=== PATIENT | female | born 1960 | race Caucasian/White ===

== ENCOUNTER 2021-05-31 07:00 | Emergency (ER) | payer SELFPAY ==
[2021-05-31 07:05] VITALS: BP 147/75; PULSE 109; RESP 17; TEMP 36.6; O2SAT 95; BMI 24.0
[2021-05-31 07:13] VITALS: BP 147/75; PULSE 111; RESP 20; TEMP 36.9; O2SAT 95; BMI 26.5
--- NOTE | 2021-05-31 07:23 | EX.ED.UPPERE ---
HPI History of Present Illness Chief Complaint: Upper Extremity Injury Narrative Narrative: 60-year-old female presenting with right shoulder pain. She says she also has some pain in her right trapezius. She denies any injury. She states it has been like this for 3 days and she woke up with the pain. She states she has been taking aspirin for the pain without relief. She states that her shoulder hurts so bad that she does not want to move her arm at all. She is using her left arm to lift her right arm. She is wearing a sling that she reportedly had put on by EMS. She was transported by EMS. [facility] Medical History History of shingles Home Medications hydrocodone-acetaminophen 1 tab PO Q6H PRN 3 Days #12 tab 05/31/21 [Rx Last Taken Unknown] prednisone 50 mg PO DAILY 5 Days #25 tab 05/31/21 [Rx Last Taken Unknown] Allergy/AdvReac Type Severity Reaction Status Date / Time No Known Allergies Allergy Verified 05/31/21 07:16 Social History Smoking Status: Current every day smoker tobacco type: cigarettes ROS ROS ED Constitutional Constitutional ED: Denies chills or fever(s) Eyes Eyes: Denies blurry vision or diplopia ENT ENT ED: Denies rhinorrhea or sore throat Cardiovascular Cardiovascular: Denies chest pain or palpitations Respiratory/Chest Respiratory/Chest: Denies cough, dyspnea or sputum Gastrointestinal Gastrointestinal: Denies abdominal pain, diarrhea, nausea or vomiting Genitourinary Genitourinary ED: Denies dysuria or hematuria Musculoskeletal Musculoskeletal: Reports neck pain and other Details: Right shoulder pain. Integumentary Denies rash Neurologic Neurologic: Denies headache(s) Psychiatric Psychiatric: Denies anxiety or depression EXAM Physical Exam Const Vital Signs: 05/31/21 07:05 05/31/21 07:13 Temperature 97.8 F 98.4 F Temperature Source Oral Temporal Pulse Rate 109 H 111 H Respiratory Rate 17 20 H Blood Pressure 147/75 H 147/75 H Blood Pressure Mean 99 99 Pulse Ox 95 95 Oxygen Delivery Method Room Air Room Air Positive well nourished General Appearance ED: NAD HEENT normocephalic Eyes PERRL and EOMs intact bilaterally Neck Neck Narrative: Right cervical paraspinal muscular tenderness approximately C6-C7. No midline deformity or step-off. Tenderness to palpation in the right trapezius. Resp normal respiratory effort and clear to auscultation bilaterally Cardio regular rate and regular rhythm Extremity Extremity Narrative: Tenderness palpation over the right shoulder girdle. Limited range of motion secondary to pain. Nontender over the rest of the humerus on the right. Right elbow nontender to palpation. Right forearm nontender to palpation. Right wrist and hand are nontender. Radial pulse 2+ in the right upper extremity. Sensation intact throughout. No rashes, ecchymosis, deformity. Neuro oriented x3 and CN's II-XII intact bilaterally Sensorium / Orientation: alert Psych mental status grossly normal Skin Lesions: no lesions Rashes: no rashes MDM MDM MDM Narrative Medical decision making narrative: Patient offered a shot of Toradol but states she is afraid of shots so she was given Ultram. Obtain imaging of the right shoulder and the cervical spine. My interpretation of the right shoulder x-ray shows no acute fracture or subluxation. On my interpretation of the cervical spine x-ray there does appear to be some degenerative changes at the levels of C5, C6, C7. This is likely causing her to have radicular pain. Patient will be given referral to orthopedic spine. She is given Prentice for pain for home. She is given return precautions. Impression: 1. Cervical radiculopathy Discharge Plan Triage Chief Complaint: Upper Extremity Injury ED Provider: Kermit Barker Dx/Rx/DC Orders Instructions: ED Radiculopathy, Cervical Prescriptions: New hydrocodone-acetaminophen 5-325 mg tablet 1 tab PO Q6H PRN (Reason: pain) 3 Days Qty: 12 RF: 0 prednisone 10 mg tablet 50 mg PO DAILY 5 Days Qty: 25 RF: 0 Primary Care Provider: Care Physician,No Primary Referrals: Louie Santos DO [STAFF PHYSICIAN] - As soon as possible Care Physician,No Primary [Primary Care Provider] - Disposition Disposition: Home, Self Care Discharge Date/Time: 05/31/21 10:43
--- NOTE | 2021-05-31 07:40 | RAD_ITS ---
EXAM: XR CERVICAL SPINE, 4 OR 5 VIEWS CLINICAL INDICATION: neck pain TECHNIQUE: Frontal, lateral and bilateral oblique views of the cervical spine. This report was created using [employer] report [employer] technology. COMPARISON: None. FINDINGS: VERTEBRAE: Mild degenerative anterolisthesis of C3 on C4. Preserved vertebral body height. No acute fracture. No spondylolisthesis. Preservation of the normal cervical lordosis. No significant facet arthropathy. DISC SPACES: Moderate stenosis of the bilateral C6-C7 intervertebral neural foramina due to osteophytes arising from the uncovertebral joints. Pronounced disc space height narrowing with anterior and posterior marginal spurs at C5-C6 and C6-C7 disc space levels. Normal remaining cervical disc space heights. SOFT TISSUES: Unremarkable. No prevertebral soft tissue widening. LUNG APICES: Clear. RAD/Cerv Spine 4 or 5 Views IMPRESSION: 1. No acute fracture of the cervical spine. 2. Moderate stenosis of the bilateral C6-C7 intervertebral neural foramina due to osteophytic spurs arising from the uncovertebral joints and pronounced C6-C7 degenerative disc space height narrowing. 3. Pronounced C5-C6 disc space height narrowing with anterior and posterior marginal spurs but no stenosis of the intervertebral neural foramina. 4. Mild degenerative anterolisthesis of C3 on C4. Electronically Signed: Jorge L Ferro MD at 8:56 EDT ,
--- NOTE | 2021-05-31 07:40 | RAD_ITS ---
STUDY: X-RAY - RIGHT SHOULDER REASON FOR EXAM: Right shoulder pain for 2 days, no specific injury. TECHNIQUE: 4 view(s) of the shoulder. COMPARISON: None. FINDINGS: Normal glenohumeral articulation. Normal acromioclavicular joint. Normal acromion. Normal humeral head and visualized proximal humerus. The soft tissue structures are unremarkable. There is scarring in the right pulmonary apex. RAD/Shoulder min 2 Views IMPRESSION: Unremarkable x-ray examination of the right shoulder. Electronically Signed: Oneil Montilla MD at 8:30 EDT ,
[2021-05-31] MEDS: traMADol 50 MG Tablet PO (09:48)
[2021-05-31] MEDS: predniSONE 20 MG Tablet 60 MG PO (09:48)
== END 2021-05-31 10:43 | disposition home or self-care (01) ==
PROVIDERS: Emergency Provider Student in an Organized Health Care Education/Training Program; Visit Provider Student in an Organized Health Care Education/Training Program
DX: M54.12 Radiculopathy, cervical region (principal); F17.210 Nicotine dependence, cigarettes, uncomplicated; M25.511 Pain in right shoulder
CPT/HCPCS: 72050; 73030; 99284

== ENCOUNTER 2024-04-29 09:33 | Emergency (ER) | payer OTHER, SELFPAY ==
[2024-04-29 09:35] VITALS: BP 158/73; PULSE 98; RESP 18; TEMP 37.1; O2SAT 93
--- NOTE | 2024-04-29 09:47 | EKG12_ITS ---
Test Reason : DYSRHYTHMIA Blood Pressure : */* mmHG Vent. Rate : 87 BPM Atrial Rate : 87 BPM P-R Int : 128 ms QRS Dur : 86 ms QT Int : 374 ms P-R-T Axes : 84 92 77 degrees QTcB Int : 450 ms Normal sinus rhythm Right atrial enlargement Rightward axis Pulmonary disease pattern Cannot rule out Septal infarct , age undetermined Abnormal ECG When compared with ECG of 29-Apr-2024 09:43, MANUAL COMPARISON REQUIRED DATA IS UNCONFIRMED Confirmed by Alex Mchugh ([id number]), food expeditor LE MENDOZA ([id number]) on 05/01/2024 7:34:19 AM Referred By: Confirmed By: lAex Mchugh
--- NOTE | 2024-04-29 09:48 | EDS_ITS ---
HPI History of Present Illness Chief Complaint: Chest Pain Informant: patient and friend Narrative Narrative: 63-year-old female states she woke up in the middle of the night with chest discomfort this morning 5 or 6 hours prior to arrival, has been aggressively g etting worse that she came to the ER. She states it feels like there is 2 different discomfort. She feels like there is pressure in her chest and then she feels like there is some type of pain just left of sternum. It does not radiate. She does not have pleuritic discomfort. She feels short of breath with this. She denies recent cough or feeling like she has an illness/infection. Her friend states she was clammy today, she denies any near- syncope or syncope, palpitations, nausea or vomiting or abdominal discomfort. No recent leg pain or swelling or recent travel/hospitalization. She states that she was in the ER a month or 2 ago somewhere else, was diagnosed with a UTI and had a CT scan, and she cannot give me any other details about that. She is a smoker, but she does not have any medical history because she does not have a doctor that she sees outside of emergency departments. [facility] Medical History History of shingles Home Medications ?Medication ?Instructions ?Recorded ?Last Taken ?Type NK 04/29/24 Unknown History Allergy/AdvReac Type Severity Reaction Status Date / Time No Known Allergies Allergy Verified 04/29/24 09:34 Social History Smoking Status: Current every day smoker tobacco type: cigarettes ROS ROS ED Constitutional Constitutional ED: Reports sweats; Denies chills or fever(s) Eyes Eyes: Denies change in vision or diplopia ENT ENT ED: Denies rhinorrhea or sore throat Cardiovascular Cardiovascular: Reports as per HPI and chest pain; Denies palpitations Respiratory/Chest Respiratory/Chest: Reports dyspnea; Denies cough Gastrointestinal Gastrointestinal: Denies abdominal pain, diarrhea, nausea or vomiting Genitourinary Genitourinary ED: Denies dysuria or hematuria Musculoskeletal Musculoskeletal: Denies back pain, extremity pain or neck pain Integumentary Denies abscess or rash Neurologic Neurologic: Denies headache(s), paresthesias or weakness Psychiatric Psychiatric: Reports anxiety; Denies suicidal thoughts EXAM Physical Exam Const Vital Signs: 04/29/24 09:35 04/29/24 09:52 04/29/24 09:57 Temperature 98.7 F Temperature Source Oral Pulse Rate 98 Respiratory Rate 18 Respiratory Effort Normal Non-Labored Respiratory Pattern Normal Blood Pressure 158/73 H Blood Pressure Mean 101 Pulse Ox 93 Oxygen Delivery Method Room Air Room Air 04/29/24 10:26 04/29/24 10:33 04/29/24 10:53 Temperature 98.9 F Temperature Source Oral Pulse Rate 89 89 83 Respiratory Rate 16 Respiratory Effort Respiratory Pattern Blood Pressure 131/88 H 144/88 H 144/86 H Blood Pressure Mean 106 Pulse Ox 98 Oxygen Delivery Method Room Air 04/29/24 12:00 Temperature Temperature Source Pulse Rate 89 Respiratory Rate 22 H Respiratory Effort Respiratory Pattern Blood Pressure 148/76 H Blood Pressure Mean 100 Pulse Ox 98 Oxygen Delivery Method Room Air Positive well nourished and well developed General Appearance ED: well developed and NAD HEENT Reports moist mucous membranes normocephalic and atraumatic Eyes PERRL and EOMs intact bilaterally Neck full ROM and supple Chest Wall inspection of chest normal and palpation of chest normal Resp normal respiratory effort and clear to auscultation bilaterally Resp Narrative: Very diminished throughout. Breath sounds are equal bilaterally. Cardio regular rate, regular rhythm and no murmurs Peripheral Pulses: pulses 2+ throughout GI non-tender and non-distended Auscultation: normoactive bowel sounds Palpation: soft Back/Spine no CVA tenderness General Back: other FROM Extremity normal to inspection General Extremety ED: Negative for edema, pulses abnormal or tenderness General Extremity: Negative for edema or pulses abnormal Neuro oriented x3, CN's II-XII intact bilaterally and no sensory deficits noted Sensorium / Orientation: awake and alert Motor Exam: strength 5/5 throughout Psych Mood & Affect: anxious Skin no rashes or lesions noted and no wounds Heart Score History: Highly Suspicious ECG: Nonspecific Repolarization Age: >45 - <65 years Risk Factors: 1 or 2 Risk Factors Troponin: </= Normal Limit Score: 5 MDM MDM MDM Narrative Medical decision making narrative: Patient has an EKG that shows no STEMI, there are some mild nonspecific ST abnormalities that are mostly inferior. The history is concerning, and the fact that she has a long history of heavy smoking and does not see a doctor and has very diminished lungs with a right axis on her EKG is concerning for possible undiagnosed COPD, but her symptoms sound more cardiac than pulmonary at this point. Two-view chest x-ray my interpretation shows COPD-like hyperexpansion, without any acute infiltrate, pneumothorax, or other pathology such as mediastinal widening. Her initial troponin is normal at 14. In the meantime the aspirin and nitroglycerin helped and her chest pressure is resolved. I believe this is a high risk situation and admission to the hospital is warranted. The patient did not want to stay in hospital, we had several conversations regarding why I recommended that she stay. She at least 8 for the second troponin, which went up by 4 into the abnormal range. As I discussed with her this is nonspecific but adds to the concern and her risk. We discussed why I do not know more specifics about the status of her heart and the need for admission and further testing and the fact that she is at risk for going home and having a myocardial infarction which could lead to cardiopulmonary arrest and/or , and she will have a hard time following up within a short period of time since she is not already established with a physician. Her sister was present throughout these conversations and is in agreement with me and tried to convince the patient to stay and we would sort the finances/insurance out later. I advised him that I would come back to talk more with them because they were talking amongst themselves. I advised the patient that if she left it with certainly need to be AGAINST MEDICAL ADVICE, and I do believe that she has the capacity to make this decision. When I came back they had already left. Lab Data Attestation: I reviewed the patient's lab results. Labs: Laboratory Results - last 24 hr 04/29/24 04/29/24 09:56 12:20 WBC 10.8 RBC 4.34 Hgb 13.5 Hct 40.2 MCV 92.6 MCH 31.1 MCHC 33.6 RDW Std Deviation 47.2 H RDW Coeff of Lakhwinder 13.8 Plt Count 190 MPV 11.1 Immature Gran % (Auto) 0.300 Neut % (Auto) 68.4 Lymph % (Auto) 18.7 L Hughes % (Auto) 9.7 Eos % (Auto) 2.2 Baso % (Auto) 0.7 Absolute Neuts (auto) 7.4 Absolute Lymphs (auto) 2.01 Nucleated RBC % 0 Sodium 137 Potassium 4.8 Chloride Direct 102 Carbon Dioxide 23.0 Anion Gap 12 BUN 19 Creatinine 0.62 L Estim Creat Clear Calc 66.12 Est GFR (MDRD) Non-Af 100 BUN/Creatinine Ratio 30.5 H Glucose 186 H Calcium 9.0 Troponin T High Sens 14 Troponin T Hi Sens 2 Hr 17 H Troponin T Hi Sens 2Hr Delta 4 Radiography Diagnostic Testing: Clinical Impression(s) from Imaging Studies Chest X-Ray 04/29/24 10:10 IMPRESSION: Hyperinflation and emphysematous changes with decreased bronchovascular markings in both upper lobes and right lung base suggestive of emphysematous changes with bullous formation. No definite pneumothorax is seen. Reading Location: [id number] Rhythm Strip Rhythm Strip: Sinus Rhythm Rate: 99 Ectopy: None EKG Initial EKG: Attestation: I personally reviewed and interpreted this EKG as follows: Interpretation: Sinus Rhythm, No Acute Injury Pattern and Non-Specific ST Changes (Some possible inferior nonspecific ST-T wave abnormalities; poor R wave progression; borderline right axis; otherwise normal intervals) Prior EKG tracings: not available for review Prior: No Prior Discharge Plan Triage Chief Complaint: Chest Pain ED Provider: Tariq Carson Dx/Rx/DC Orders Clinical Impression: Chest pain, unspecified Prescriptions: No Action NK Primary Care Provider: Care Physician,No Primary Referrals: Care Physician,No Primary [Primary Care Provider] - Print Language: Slovak Disposition Disposition: Against Medical Advice Discharge Date/Time: 04/29/24 14:30
[2024-04-29 09:52] VITALS: BMI 18.1
[2024-04-29 10:10] LABS: Absolute Lymphocyte Count 2.01 X10^3/uL (0.83-4.51); Absolute Neutrophil Count 7.4 X10^3/uL (2.0-7.7); Basophil# 0.07 X10^3/uL; Basophil% 0.7 % (0-1); Eosinophil# 0.24 X10^3/uL; Eosinophils% 2.2 % (0-5); Hematocrit 40.2 % (37-47); Hemoglobin 13.5 g/dL (12.0-15.0); Lymphocyte # 2.01 X10^3/ul (0.83-4.51); Lymphocyte % 18.7 % (19-41); Mean Corp Hgb Conc 33.6 g/dL (32-36); Mean Corpuscular Hgb 31.1 pg (27.0-32.0); Mean Corpuscular Volume 92.6 fL (81-99); Mean Platelet Vol. 11.1 fl (6.2-12.0); Monocyte# 1.04 X10^3/uL; Monocyte% 9.7 % (0-10); NRBC Flagged by Analyzer 0 % (0-5); Neutrophil # 7.37 X10^3/uL (2.7-7.7); Neutrophil % 68.4 % (47-70); Platelet Count 190 K/mm3 (150-450); RBC Distribution Width CV 13.8 % (11.6-14.6); RBC Distribution Width SD 47.2 fl (35.1-43.9); Red Blood Count 4.34 M/mm3 (4.2-5.4); White Blood Count 10.8 K/mm3 (4.4-11.0)
--- NOTE | 2024-04-29 10:10 | RAD_ITS ---
PROCEDURE: CHEST PA AND LATERAL REASON FOR EXAM: Chest pain and shortness of breath. TECHNIQUE: Frontal and lateral views of the chest. COMPARISON: None. FINDINGS: EKG electrodes are seen. Atherosclerotic calcification of the aortic arch. Hyperinflation. Decreased bronchovascular markings in the upper lobes suggestive of emphysema with bullous formation. Mild residual lung tissue in the left lower lobe. The bones are unremarkable. RAD/Chest PA and Lateral IMPRESSION: Hyperinflation and emphysematous changes with decreased bronchovascular marking s in both upper lobes and right lung base suggestive of emphysematous changes with bullous formation. No definite pneumo thorax is seen. Reading Location: [facility]
[2024-04-29 10:26] VITALS: BP 131/88; PULSE 89
[2024-04-29] MEDS: Aspirin 81 MG TAB.CHEW 324 MG PO (10:26)
[2024-04-29] MEDS: Nitroglycerin SL (ED/IMG/CATH) 0.4 MG TABLET SL ×2 (10:26→10:53)
[2024-04-29 10:33] VITALS: BP 144/88; PULSE 89; RESP 16; TEMP 37.2; O2SAT 98
[2024-04-29 10:53] VITALS: BP 144/86; PULSE 83
[2024-04-29 10:53] LABS: Anion Gap 12 (5-15); BUN 19 mg/dL (4-19); BUN/Creat Ratio 30.5 RATIO (10-20); Chloride 102 mmol/L (96-108); Creatinine, Serum 0.62 mg/dL (0.70-1.20); EST Glomerular Filtration Rate 100 (>60); Estimated Creatinine Clearance 66.12 ml/min (50-250); Glucose 186 mg/dL (70-99); Potassium 4.8 mmol/L (3.3-5.1); Sodium Level 137 mmol/L (133-145); Troponin T High Sensitivity 14 ng/L (<=14)
[2024-04-29 12:00] VITALS: BP 148/76; PULSE 89; RESP 22; O2SAT 98
--- NOTE | 2024-04-29 13:00 | CM.ED ---
Social work Reason for referral: Medicaid application Referral source: Emely, registration Emely from [facility] Registration asked for SW to speak with patient due to patient's doctor recommending patient be admitted, but patient's desire to not be admitted for various reasons. Emely expressed patient's insurance was not verifying which was causing additional stress for patient. Emely stated attempting to explain to patient that patient could apply for Medicaid and Medicaid would apply to a past visit, but patient was still reportedly stating desire to leave. This SW entered patient's room, introducing self and role at [facility]. Patient was observed crying in a position on the bed, stating not being able to stay the night and not being able to make the right decision. Patient's sister, Nessa Schmid, was bedside and talked with this SW about some of the stress patient was under, including losing patient's and 2 children recently (one child to overdose) and having family members shun patient. Nessa stated patient had been living with patient's brother in [place], but patient was staying currently with Nessa in [place]. Nessa stated wanting to take patient home with Nessa and make sure patient did the recommended testing outpatient rather than patient being admitted. SW attempted to explore patient stressors, including patient's lack of insurance. SW explained that SW could have patient apply for Medicaid while remaining in the ED or during admission; patient refused. SW advised Nessa and patient of patient's doctor's recommendation to stay and be admitted, specifically stating that patient's reported stress level was contributing to patient's need for a stress test and admission. Patient stated not being willing to stay despite knowing this was a bad decision and requested to leave. SW left room to update Dr. Carson and Gordon YUNG. SW reentered patient's room after gathering information on patient's options for applying for Medicaid. Upon reentry into patient's room, patient was observed highly escalated and laying in the position crying. Patient was observed talking, seemingly to another person in the room. Nessa stated patient had never done that before to Nessa's knowledge, though Nessa reported not seeing patient recently. Nessa was open to this SW speaking privately with patient; patient was open to this once known that SW was simply trying to support patient rather than trick patient into staying. Throughout conversation, patient was observed being able to take deep breaths and discuss the situation in a more calm way. Patient identified knowing the right decision to make, but being unable to fight self to make the right decision. Patient stated never being able to make good decisions in the past, so why start now? Patient confirmed patient's better half Abdi as passing away in August 2016. Patient stated being homeless then for 3 years prior to moving in with patient's brother in [place]. Patient stated patient's daughter, Joselyn, in 2014 and patient's son, Dominic, in 2018. Patient stated these being difficult deaths for patient to endure and patient often talking to Abdi for comfort, but patient denied hearing Abdi respond. Patient stated having 2 other daughters and 3 grandchildren. Patient stated coping with stress by making jewelry, reading, and playing with patient's Ehsan roth. Patient denied having any mental health diagnoses or taking mental health medication. Patient stated doing some counseling previously at [facility] in [place], though states this was years ago. Patient stated having one suicide attempt via cutting self when patient's children were younger, though patient denies any current suicidal thoughts. Patient endorses wishing patient wasn't left behind when Abdi and patient's children passed, though patient stated often that patient does not want to kill self to get to [facility] sooner and patient has no desire to hurt self. Patient accepted resources of local counseling agencies and stated willingness for SW to inform Nessa of patient receiving counseling resources. Patient denied further needs at this time, but patient remained adamant that patient was intending to leave [facility]. BRANDEE updated Dr. Carson and Gordon RN. Hilaria Kitchen, CLOTH DESIGNER, SECURITIES UNDERWRITER
[2024-04-29 13:07] LABS: TROPONIN VARIANCE 2 HR 4; Troponin T High Sens 2 HR 17 ng/L (<=14)
[2024-04-29 14:00] VITALS: BP 142/78; PULSE 64; RESP 18; O2SAT 98
== END 2024-04-29 14:30 | disposition left against medical advice (07) ==
PROVIDERS: Emergency Provider Emergency Medicine; Visit Provider Emergency Medicine
DX: R07.9 Chest pain, unspecified (principal); F17.210 Nicotine dependence, cigarettes, uncomplicated
CPT/HCPCS: 71046; 80048; 84484; 85025; 93005; 99284; A4216

== ENCOUNTER 2024-04-29 21:58 | Observation (INO) | payer OTHER, SELFPAY ==
[2024-04-29] VITALS (12 sets, daily range): BP systolic 98–139; BP diastolic 50–80; PULSE 79–91; RESP 13–21; TEMP 36.4; O2SAT 89–98; BMI 17.5
--- NOTE | 2024-04-29 09:43 | EKG12_ITS ---
Test Reason : CP Blood Pressure : */* mmHG Vent. Rate : 99 BPM Atrial Rate : 99 BPM P-R Int : 126 ms QRS Dur : 86 ms QT Int : 360 ms P-R-T Axes : 79 91 64 degrees QTcB Int : 462 ms Normal sinus rhythm Rightward axis Septal infarct , age undetermined Abnormal ECG No previous ECGs available Confirmed by Alex Mchugh ([id number]), pictures editor LE MENDOZA ([id number]) on 05/01/2024 7:36:53 AM Referred By: Confirmed By: Alex Mchugh
--- NOTE | 2024-04-29 22:31 | EKG12_ITS ---
Test Reason : CP ADMIT Blood Pressure : */* mmHG Vent. Rate : 85 BPM Atrial Rate : 85 BPM P-R Int : 134 ms QRS Dur : 100 ms QT Int : 372 ms P-R-T Axes : 86 91 78 degrees QTcB Int : 442 ms Normal sinus rhythm Rightward axis Septal infarct , age undetermined Abnormal ECG When compared with ECG of 29-Apr-2024 22:10, MANUAL COMPARISON REQUIRED DATA IS UNCONFIRMED Confirmed by Alex Mchugh ([id number]), editor producer DESEAN PEACOCK ([id number]) on 04/30/2024 10:45:54 AM Referred By: DR ANDRADE Confirmed By: Alex Mchugh
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
[2024-04-29] MEDS: Ipratropium/Albuterol Sulfate 3 ML AMPUL.NEB INHALATION (22:44)
[2024-04-29] MEDS: Lorazepam 2 MG/ML WCH Syringe 0.5 MG IV (22:50)
[2024-04-29] MEDS: 0.9% Normal Saline (1000mL) 1,000 ML 999 ML IV (22:50)
[2024-04-29] MEDS: Nitroglycerin SL (ED/IMG/CATH) 0.4 MG TABLET SL ×2 (22:51→23:14)
[2024-04-29 22:59] LABS: D-Dimer Quantitative (DVT/PE) 0.28 FEU/ug/m (0.27-0.49)
[2024-04-29 23:18] LABS: Magnesium 2.2 mg/dL (1.5-2.2)
[2024-04-29 23:22] LABS: Troponin T High Sensitivity 14 ng/L (<=14)
--- NOTE | 2024-04-29 23:52 | HP.PCM_ITS ---
HPI - General General Date of Admission: 04/29/24 Date of Service: 04/29/24 Chief Complaint: Chest pain HPI Narrative NAOMI SÁNCHEZ, is a 63 F who presents to the emergency room with chief complaint of chest pain. She was seen and examined earlier in the day and left AMA only to return later this evening. Patient states at 4:00 this morning she had substernal chest pain that did not radiate it was significant enough to make her feel short of breath. Patient has a significant past medical history of long-term smoking and does not routinely seek medical care. Patient states she was anxious and left the emergency room to help care for family member but then came back for further evaluation. Initial troponin x 2 are negative however due to risk factors and continued chest pain patient will be admitted for cardiac rule out. Patient denies any fevers chills and/or nausea or vomiting or diarrhea. [facility] Medical History History of shingles Home Medications ?Medication ?Instructions ?Recorded ?Last Taken ?Type NK 04/29/24 Unknown History Allergy/AdvReac Type Severity Reaction Status Date / Time No Known Allergies Allergy Verified 04/29/24 21:59 Social History Smoking Status: Current every day smoker tobacco type: cigarettes ROS Constitutional Constitutional: Denies chills or fever(s) Eyes Eyes: Denies blurry vision ENT HEENT: Denies abnormal hearing Cardiovascular Cardiovascular: Reports chest pain; Denies syncope Respiratory/Chest Respiratory/Chest: Denies cough Gastrointestinal Gastrointestinal: Denies abdominal pain Genitourinary Genitourinary: Denies dysuria Musculoskeletal Musculoskeletal: Denies back pain Integumentary Integumentary: Denies dry skin Neurologic Neurologic: Denies abnormal speech Psychiatric Psychiatric: Reports anxiety Vital Signs Vital Signs Vital Signs: 04/29/24 21:59 04/29/24 22:35 04/29/24 22:41 Temperature 97.5 F L Temperature Source Oral Pulse Rate 88 87 Respiratory Rate 18 18 Respiratory Pattern Blood Pressure 139/75 H Blood Pressure Mean 96 Pulse Ox 94 Oxygen Delivery Method Room Air Room Air 04/29/24 22:43 04/29/24 22:44 04/29/24 22:45 Temperature Temperature Source Pulse Rate 81 84 Respiratory Rate 20 H 21 H Respiratory Pattern Normal Normal Blood Pressure Blood Pressure Mean Pulse Ox Oxygen Delivery Method 04/29/24 22:51 04/29/24 22:52 04/29/24 23:00 Temperature Temperature Source Pulse Rate 81 80 88 Respiratory Rate 19 H 18 Respiratory Pattern Blood Pressure 107/80 107/80 117/64 Blood Pressure Mean 90 75 Pulse Ox 98 93 Oxygen Delivery Method Room Air Room Air 04/29/24 23:03 04/29/24 23:14 Temperature Temperature Source Pulse Rate 81 79 Respiratory Rate 18 Respiratory Pattern Blood Pressure 117/64 118/66 Blood Pressure Mean 81 Pulse Ox 94 Oxygen Delivery Method Room Air Weight Weight: 95 lb 14.4 oz Body Mass Index (BMI) 17.5 Physical Exam Const oriented x3 General Appearance: cooperative and well developed Eyes PERRL and EOMs intact bilaterally Neck no lymphadenopathy Lymph Lymphatic: no lymphadenopathy noted Resp normal respiratory effort, normal air movement and clear to auscultation bilaterally Cardio regular rate, regular rhythm, S1 normal heart sound, S2 normal heart sound and no murmurs GI normal to inspection, nondistended, normoactive bowel sounds Extremity normal capillary refill Skin General Skin Exam: no breakdown Neuro no focal motor deficits and no sensory deficits noted Psych thought process normal Mood & Affect: anxious Results Lab / Micro Data Labs: Laboratory Results - last 24 hr 04/29/24 22:44: D-Dimer Quant (PE/DVT) 0.28, Magnesium 2.2, Troponin T High Sens 14, TSH 5.260 H Rhythm Strip Rhythm Strip: Sinus Rhythm Rate: 87 Ectopy: None Assessment & Plan Assessment/Plan (1) Chest pain, unspecified: PLAN: Plan 1 chest pain rule out GA?admit patient to progressive care unit, repeat cardiac enzymes, order nuclear exercise stress test in the a.m. will add orders for as needed nitroglycerin for chest pain as well as oxygen as needed. I do not feel morphine is warranted at this time as her pain is 1 out of 10 on a scale 1-10. 2. Smoking cessation encouraged 3. DVT prophylaxis?low molecular weight heparin Charges/Coding Visit Charges OBSV E&M: 20903 Observ/hosp same date L2
[2024-04-30] VITALS (12 sets, daily range): BP systolic 98–129; BP diastolic 46–72; PULSE 76–92; RESP 12–18; TEMP 35.7–36.8; O2SAT 86–100; BMI 17.3
[2024-04-30 01:14] LABS: TROPONIN VARIANCE 2 HR 2; Troponin T High Sens 2 HR 16 ng/L (<=14)
--- NOTE | 2024-04-30 02:56 | NURSING ---
Pts friend Harvinder sent keys to pt on PCU once admitted. Her car is parked at hospital in middle of parking lot A.
[2024-04-30 03:45] LABS: Absolute Lymphocyte Count 1.93 X10^3/uL (0.83-4.51); Absolute Neutrophil Count 4.7 X10^3/uL (2.0-7.7); Basophil# 0.04 X10^3/uL; Basophil% 0.5 % (0-1); Eosinophil# 0.22 X10^3/uL; Eosinophils% 2.9 % (0-5); Hematocrit 37.9 % (37-47); Lymphocyte # 1.93 X10^3/ul (0.83-4.51); Lymphocyte % 25.2 % (19-41); Mean Corp Hgb Conc 34.3 g/dL (32-36); Mean Corpuscular Hgb 32.2 pg (27.0-32.0); Mean Corpuscular Volume 93.8 fL (81-99); Mean Platelet Vol. 10.9 fl (6.2-12.0); Monocyte# 0.79 X10^3/uL; Monocyte% 10.3 % (0-10); NRBC Flagged by Analyzer 0 % (0-5); Neutrophil # 4.65 X10^3/uL (2.7-7.7); Neutrophil % 60.8 % (47-70); Platelet Count 166 K/mm3 (150-450); RBC Distribution Width CV 13.8 % (11.6-14.6); RBC Distribution Width SD 47.4 fl (35.1-43.9); Red Blood Count 4.04 M/mm3 (4.2-5.4); White Blood Count 7.7 K/mm3 (4.4-11.0)
[2024-04-30 04:09] LABS: TROPONIN VARIANCE 4 HR 3; Troponin T High Sens 4 HR 17 ng/L (<=14)
[2024-04-30 04:11] LABS: Anion Gap 9 (5-15); BUN 20 mg/dL (4-19); BUN/Creat Ratio 37.6 RATIO (10-20); Carbon Dioxide 23.9 mmol/L (21.0-32.0); Chloride 105 mmol/L (98-108); Creatinine, Serum 0.52 mg/dL (0.70-1.20); EST Glomerular Filtration Rate 104 (>60); Estimated Creatinine Clearance 74.99 ml/min (50-250); Glucose 97 mg/dL (70-99); Potassium 4.1 mmol/L (3.3-5.1); Sodium Level 138 mmol/L (133-145)
[2024-04-30] MEDS: 0.9% Saline Lock 10 ML Syringe IV (06:07)
--- NOTE | 2024-04-30 10:05 | STRESSREP_ITS ---
Stress Test Report Date: 04/30/2024 Procedure: Pharmacologic stress nuclear imaging study Indications: Chest pain Consent: Per the patient Procedure: The patient underwent pharmacologic (Regadenoson 0.4mg ) evaluation with a peak heart rate of 96 beats per minute (61%predicted maximal heart rate) and a peak blood pressure of 122/68 mmHg. The baseline ECG demonstrated sinus rhythm. The peak pharmacologic ECG demonstrated no ischemic changes. There were no cardiac dysrhythmias pretest, during pharmacologic infusion, or recovery. There was no complaint of chest discomfort during pharmacologic infusion or recovery. The patient was injected with 12.0 millicuries of technetium 99m Cardiolite and subsequently rest SPECT Cardiolite nuclear imaging was obtained in the horizontal long, vertical long, and short axis views. The patient underwent pharmacologic (Regadenoson) evaluation. The patient was injected with 34.9 millicuries of technetium 99m Cardiolite and subsequently stress SPECT Cardiolite nuclear imaging was obtained in the horizontal long, vertical long, and short axis views. A gated Cardiolite study at peak stress was obtained. The examination was stopped secondary to completion of protocol. Rest and stress SPECT Cardiolite nuclear imaging status post realignment, normalization, and attenuation correction demonstrate no fixed or reversible perfusion defects. There is end systolic thickening and brightening. The gated Cardiolite study demonstrates myocardial thickening and inward wall motion. The reported LVEF is 74%. Impression: 1. Pharmacologic (Regadenoson) evaluation 2. Peak pharmacologic ECG with no ischemic changes. 3. There were no cardiac dysrhythmias pretest, during pharmacologic infusion, or recovery. 5. Rest and stress SPECT Cardiolite nuclear imaging demonstrate relative uniform tracer uptake and myocardial perfusion appearing within normal limits. 6. The gated Cardiolite study reports an LVEF of 74%. This note was generated with O-RIDation software. It may contain incorrect words, spelling, and punctuation that were not noted in checking the note before signing.
--- NOTE | 2024-04-30 15:49 | DS.PCM_ITS ---
Providers Date of Admission: 04/29/24 Date of Discharge: 04/30/24 Primary Care Physician: No Primary Care Phys Reason For Visit: CHEST PAIN Diagnosis Discharge Diagnosis (1) Chest pain, unspecified: Status: Acute Code(s): R07.9 - Chest pain, unspecified Medications at Discharge Home Medications NK 04/29/24 Hospital Course Operations None Procedures Stress test Summary of Care Provided Minutes Spent on Discharge: 45 Hospital Course: Patient is a 63-year-old female with no significant past medical history who was admitted through the ED on 04/30/2024 with a complaint of chest pain. She had been seen in the ED earlier on the day of admission but left AMA and subsequently came back. She had the chest pain was substernal and started in the early hours of the day of admission. She had a history of long-term smoking. She denied any lightheadedness or dizziness, nausea vomiting or any other symptoms. Review of symptoms otherwise negative. Troponins x 3 were negative and EKG showed no acute ST changes. She was admitted to be managed for chest pain to rule out ACS. She had a stress test done on 04/30/2024 which showed no evidence of ischemia. Of note patient's TSH checked on admission was also elevated at 5.2. Free T3 and T4 were therefore checked which were pending at time of discharge. Patient seen and examined prior to discharge. She had no other complaints and felt well. Chest pain had not recurred overnight. Review of systems otherwise negative. Labs and vitals reviewed. Home medication reviewed and reconciled. Physical Exam Const alert, oriented x3 and no apparent distress General Appearance: cooperative and comfortable Orientation / Consciousness: awake HEENT normocephalic, head/scalp atraumatic, hearing grossly normal bilaterally and moist oral mucous membranes Mouth: oral and palatal mucosa normal Eyes PERRL, EOMs intact bilaterally and conjunctivae normal Neck no lymphadenopathy, supple and no JVD Resp normal respiratory effort, no retractions, no use of accessory muscles and clear to auscultation bilaterally Cardio regular rate, regular rhythm, S1 normal heart sound, S2 normal heart sound and no murmurs GI normal to inspection, nondistended, normoactive bowel sounds, soft to palpation, non-tender and non-distended Extremity normal to inspection, full ROM and no clubbing, cyanosis or edema Skin no rashes or lesions noted Neuro oriented x3, CN's II-XII intact bilaterally, moves all extremities and no focal motor deficits Sensorium / Orientation: awake and alert Motor Exam: strength 5/5 throughout Psych affect normal Weight / BMI Weight Weight: 94 lb 9.253 oz Body Mass Index (BMI) 17.3 ABG / Lab / Microbiology Data 04/30/24 03:24 04/30/24 03:24 Laboratory: Laboratory Results - last 24 hr 04/29/24 22:44: D-Dimer Quant (PE/DVT) 0.28, Magnesium 2.2, Troponin T High Sens 14, TSH 5.260 H 04/30/24 00:47: Troponin T Hi Sens 2 Hr 16 H, Troponin T Hi Sens 2Hr Delta 2 04/30/24 03:24: WBC 7.7, RBC 4.04 L, Hgb 13.0, Hct 37.9, MCV 93.8, MCH 32.2 H, MCHC 34.3, RDW Std Deviation 47.4 H, RDW Coeff of Lakhwinder 13.8, Plt Count 166, MPV 10.9, Immature Gran % (Auto) 0.300, Neut % (Auto) 60.8, Lymph % (Auto) 25.2, M ulises % (Auto) 10.3 H, Eos % (Auto) 2.9, Baso % (Auto) 0.5, Absolute Neuts (auto) 4.7, Absolute Lymphs (auto) 1.93, Nucleated RBC % 0, Sodium 138, Potassium 4.1, Chloride 105, Carbon Dioxide 23.9, Anion Gap 9, BUN 20 H, Creatinine 0.52 L, Estim Creat Clear Calc 74.99, Est GFR (MDRD) Non-Af 104, BUN/Creatinine Ratio 37.6 H, Glucose 97, Calcium 9.0, Troponin T Hi Sens 4Hr 17 H, Troponin T Hi Sens 4Hr Delta 3 D/C Instructions Discharge Diet: Low fat / Low cholesterol Discharge Activity: Return to Normal Activity Weight Bearing Status: Weight bearing as tolerated Call your doctor if you observe: Fever of 101 or Higher, Shortness of breath, Dizziness, Swelling in the ankles and Chest pain DC O2, CPAP, BIPAP Needs Home O2 Discharge instructions: No DC home with Oxygen: No Meaningful Use Info Meaningful Use Meaningful Use Diagnoses (Choose all that apply): None applicable Ischemic Stroke Statin Dosing Therapy Reference: STATIN DOSE THERAPY REFERENCE: * Patients > 75 years receive moderate or high dose statin therapy. * Patients 75 years or YOUNGER should receive HIGH intensity statin dose unless contraindicated. You will be required to document reason for non-treatment if statin daily dose does not meet guidelines. HIGH DOSE STATIN THERAPY DAILY Atorvastatin > than or = to 40 mg Rosuvastatin > than or = to 20 mg Amlodipine + Atorvastatin > than or = to 2.5/40 mg Ezetimibe + Simvastatin 10/80 mg Simvastatin 80mg Discharge Plan Admission Admit Date/Time: 04/29/24 23:57 Primary Reason for Your Visit: chest pain, hypothyroidism Attending Provider: Yamilet Matthews Primary Care Provider: Care Physician,No Primary Consulting Providers: Tor Law Instructions Patient Instructions: ED Chest Pain, Noncardiac, ED Hypothyroidism Discharge Orders/Prescriptions Prescriptions: No Action NK Referrals / Follow Up: Erika Hudson MD [Med Staff - Active Staff] - Within 1 Month (see to establish PCP care.) Care Physician,No Primary [Primary Care Provider] - Disposition Disposition (needs filled in before D/C Order can be placed): Home, Self Care Charges/Coding Visit Charges Inpatient E&M: 42662 Disch Hosp >30min
--- NOTE | 2024-04-30 17:22 | DCINST_ITS ---
Discharge Instructions Diet Discharge Diet: Low fat / Low cholesterol DC O2, CPAP, BIPAP needs Home O2 Discharge instructions: No Dressing / Incision Discharge Activity: Return to Normal Activity Weight Bearing Status: Weight bearing as tolerated Dressing / Incision Call your doctor if you observe: Fever of 101 or Higher, Shortness of breath, Dizziness, Swelling in the ankles and Chest pain Follow Up Care Test Results: Test results from this visit will be discussed in further detail at your follow- up appointment, if applicable. Discharge Plan Admission Admit Date/Time: 04/29/24 23:57 Primary Reason for Your Visit: chest pain, hypothyroidism Attending Provider: Yamilet Matthews Primary Care Provider: Care Physician,No Primary Consulting Providers: Tor Law Instructions Patient Instructions: ED Chest Pain, Noncardiac, ED Hypothyroidism Discharge Orders/Prescriptions Prescriptions: New levothyroxine 25 mcg capsule 25 mcg PO DAILY Qty: 30 0RF Referrals / Follow Up: Erika Hudson MD [Med Staff - Active Staff] - Within 1 Month (see to establish PCP care.) Care Physician,No Primary [Primary Care Provider] - Disposition Disposition (needs filled in before D/C Order can be placed): Home, Self Care
--- NOTE | 2024-04-30 19:56 | PN_ITS ---
Subjective Subjective Patient seen and examined. She had no active complaints. She was admitted ith a complaint of chest pain. Chest pain hasnt recurred since admission. She had a stress test done today which showed no evidence of ischemia. Plan was to discharge her home. However, she subsequently became hypoxic and required 2L of oxygen with ambulation. Discharge therefore cancelled as patient did not require oxygen on admission and so it was not clear why she was now on oxygen. Review of systems is otherwise negative. Objective Data Objective Data Vital Signs: Vital Signs Temp Pulse Resp BP Pulse Ox O2 Del Method O2 Flow Rate 98.3 F 89 18 105/46 L 92 Room Air 1 04/30/24 15:42 04/30/24 15:42 04/30/24 15:42 04/30/24 15:42 04/30/24 15:42 04/30/24 15:42 04/30/24 13:20 Oxygen Flow Rate (L/min) 1 Oxygen Delivery Method Room Air Weight: 94 lb 9.253 oz Body Mass Index (BMI) 17.3 Intake & Output: Intake and Output for Last 24 Hours 04/28/24 04/29/24 04/30/24 23:59 23:59 23:59 Intake Total 1000 / 1000 Balance 1000 / 1000 Lab / Micro Data 04/30/24 03:24 04/30/24 03:24 Labs: Laboratory Results - last 24 hr 04/29/24 22:44: D-Dimer Quant (PE/DVT) 0.28, Magnesium 2.2, Troponin T High Sens 14, TSH 5.260 H 04/30/24 00:47: Troponin T Hi Sens 2 Hr 16 H, Troponin T Hi Sens 2Hr Delta 2 04/30/24 03:24: WBC 7.7, RBC 4.04 L, Hgb 13.0, Hct 37.9, MCV 93.8, MCH 32.2 H, MCHC 34.3, RDW Std Deviation 47.4 H, RDW Coeff of Lakhwinder 13.8, Plt Count 166, MPV 10.9, Immature Gran % (Auto) 0.300, Neut % (Auto) 60.8, Lymph % (Auto) 25.2, M ulises % (Auto) 10.3 H, Eos % (Auto) 2.9, Baso % (Auto) 0.5, Absolute Neuts (auto) 4.7, Absolute Lymphs (auto) 1.93, Nucleated RBC % 0, Sodium 138, Potassium 4.1, Chloride 105, Carbon Dioxide 23.9, Anion Gap 9, BUN 20 H, Creatinine 0.52 L, Estim Creat Clear Calc 74.99, Est GFR (MDRD) Non-Af 104, BUN/Creatinine Ratio 37.6 H, Glucose 97, Calcium 9.0, Troponin T Hi Sens 4Hr 17 H, Troponin T Hi Sens 4Hr Delta 3, Free T4 1.30 Rhythm Strip Rhythm Strip: Sinus Rhythm Rate: 87 Ectopy: None Physical Exam Const alert, oriented x3, no apparent distress and well nourished General Appearance: cooperative and well developed HEENT normocephalic, head/scalp atraumatic, moist oral mucous membranes and oropharynx normal Eyes PERRL and EOMs intact bilaterally Neck no lymphadenopathy and supple Lymph Lymphatic: no lymphadenopathy noted and no lymphedema noted Resp Resp Narrative: mildly diminished breath sounds bibasally, no wheezes or crackles. On 2L of oxygen by nasal canula Cardio regular rate, regular rhythm, S1 normal heart sound, S2 normal heart sound and no murmurs GI normal to inspection, nondistended, normoactive bowel sounds, soft to palpation and non-tender Extremity normal capillary refill, no clubbing, cyanosis or edema and no calf tenderness General Extremity: no tenderness to palpation of joints or extremities Skin General Skin Exam: no breakdown Neuro CN's II-XII intact bilaterally, no focal motor deficits and no sensory deficits noted Motor Exam: strength 5/5 throughout Psych thought process normal and cooperative Assessment & Plan Assessment/Plan (1) Chest pain, unspecified: PLAN: Plan #Chest pain * chest pain did not recur during admission. * troponins are negative * EKG showed no acute ST changes. * stress test done today is negative * Stable. SL nitroglycerin prn * #Hypoxia * patient required 2L of oxygen. * unclear why she is requiring oxygen as she was not on oxygen on admission. I suspect she does have underlying COPD based on CXR findings on admission. * CXR showed hyperinflation and emphysematous changes with decreased bronchovascular markings in both upper lobes and right lung base suggestive of emphysematous changes with bullous formation and no definite pneumothorax. * I suspect she has underlying COPD also * give a dose of IV lasix 40mg x 1 this evening * check BNP. Get 2D echo tomorrow * titrate oxygen to maintain sats >90% * breathing treatment with bronchodilators. * #Subclinical hypothyroidism * TSH was elevated at 5.2, but free T4 was WNL. * will therefore hold off on starting synthroid * to follow up with PCP for repeat thyroid function tests on discharge. * DVT prophylaxis: lovenox Charges/Coding Visit Charges Inpatient E&M: 45605 Subs Hosp L2
[2024-04-30] MEDS: guaiFENesin 1,200 MG Tablet 1200 MG PO (20:30)
[2024-05-01 02:13] VITALS: BP 108/57; PULSE 86; RESP 20; TEMP 36.6; O2SAT 93
--- NOTE | 2024-05-01 07:44 | ECHOD_ITS ---
Reason For Study Reason For Study: DYSPNEA/SOB Procedure This was a 2D Doppler, Color Flow transthoracic echocardiogram. The study was technically difficult. Exam performed portable in patient room. Left Ventricle Normal size and thickness. The left ventricular ejection fraction is 55 %. No evidence for diastolic dysfunction. Right Ventricle Normal right ventricle. Atria The left and right atria are normal. Bubble contrast study is negative for PFO/ASD. Mitral Valve Anterior leaflet diffuse mitral valve thickening. Trivial mitral valve insufficiency. Tricuspid Valve Trivial tricuspid valve insufficiency. Unable to estimate RV systolic pressure due to insufficient tricuspid regurgitant envelope. Aortic Valve The aortic valve is not well visualized in the short axis view. There is no aortic stenosis. No aortic valve insufficiency. Pulmonic Valve The pulmonic valve is not well visualized. Great Vessels The aortic root is not well visualized. Pericardium/Pleural No pericardial effusion. Medication 22 gauge I.V. with prn adaptor inserted into right arm. Performed a rapid injection of agitated mix of 9 cc saline and 1cc air to assess for atrial septal defect. MMode/2D Measurements & Calculations LVIDd: 3.4 cm IVSd: 0.79 cm Ao root diam: 2.8 cm LVIDs: 2.5 cm LVPWd: 0.87 cm RVDd: 2.2 cm FS: 28.3 % LAV(MOD-bp): 33.6 ml LVAd ap4: 18.5 cm2 SV(MOD-sp4): 23.3 ml LAV(MOD-bp) Indexed: 24.2 ml/m2 LVLd ap4: 6.7 cm SI(MOD-sp4): 16.8 ml/m2 LAV(MOD-sp2): 28.0 ml EDV(MOD-sp4): 42.8 ml LAV(MOD-sp4): 29.8 ml EDV(sp4-el): 43.5 ml LVAs ap4: 11.1 cm2 LVLs ap4: 5.2 cm ESV(MOD-sp4): 19.4 ml ESV(sp4-el): 20.1 ml EF(MOD-sp4): 54.6 % EF(sp4-el): 53.8 % SV(sp4-el): 23.4 ml LA A4 area: 11.5 cm2 LA dimension(2D): 2.2 cm RA A4 area: 9.7 cm2 TAPSE: 1.5 cm Time Measurements MV dec time: 0.17 sec Doppler Measurements & Calculations MV E max nguyễn: 59.2 cm/sec Lat Peak E' Nguyễn: 8.1 cm/sec Med Peak E' Nguyễn: 9.5 cm/sec MV A max nguyễn: 92.7 cm/sec E/E' lat: 7.3 E/E' med: 6.3 MV E/A: 0.64 MV V2 max: 92.1 cm/sec MV P1/2t max nguyễn: 77.8 cm/sec Ao V2 max: 119.5 cm/sec MV max P.4 mmHg MV P1/2t: 57.0 msec Ao max P.7 mmHg MV V2 mean: 54.6 cm/sec MV dec slope: 399.9 cm/sec2 Ao V2 mean: 79.0 cm/sec MV mean P.3 mmHg MVA(P1/2t): 3.9 cm2 Ao mean P.8 mmHg MV V2 VTI: 16.7 cm Ao V2 VTI: 21.4 cm AV (velocity ratio): 0.94 LV V1 max: 103.6 cm/sec PA V2 max: 88.3 cm/sec LV V1 max P.3 mmHg LV V1 mean P.1 mmHg LV V1 mean: 67.8 cm/sec LV V1 VTI: 20.1 cm ECHO/Echo Complete Interpretation Summary The left ventricular ejection fraction is 55 %. No evidence for diastolic dysfunction. Bubble contrast study is negative for PFO/ASD. Anterior leaflet diffuse mitral valve thickening. The study was technically difficult. Ordering Physician: Yamilet Matthews Referring Physician: BILLIE PCP Performed By: Rosemarie Camp RDCS, RVT
[2024-05-01 08:16] VITALS: O2SAT 94
[2024-05-01 09:08] VITALS: BP 124/68; PULSE 111; RESP 18; TEMP 36.5; O2SAT 95; O2SAT 96
[2024-05-01] MEDS: guaiFENesin 1,200 MG Tablet 1200 MG PO (09:10)
[2024-05-01 09:13] VITALS: O2SAT 92; O2SAT 95
[2024-05-01 09:25] VITALS: PULSE 110
--- NOTE | 2024-05-01 14:08 | DS.PCM_ITS ---
Providers Date of Admission: 04/29/24 Date of Discharge: 05/01/24 Primary Care Physician: No Primary Care Phys Reason For Visit: CHEST PAIN Diagnosis Discharge Diagnosis (1) Chest pain, unspecified: Status: Acute Code(s): R07.9 - Chest pain, unspecified Plan #Chest pain * chest pain did not recur during admission. * troponins are negative * EKG showed no acute ST changes. * stress test done today is negative * Stable. SL nitroglycerin prn * #Hypoxia * patient required 2L of oxygen. * unclear why she is requiring oxygen as she was not on oxygen on admission. I suspect she does have underlying COPD based on CXR findings on admission. * CXR showed hyperinflation and emphysematous changes with decreased bronchovascular markings in both upper lobes and right lung base suggestive of emphysematous changes with bullous formation and no definite pneumothorax. * I suspect she has underlying COPD also * give a dose of IV lasix 40mg x 1 this evening * check BNP. Get 2D echo tomorrow * titrate oxygen to maintain sats >90% * breathing treatment with bronchodilators. * #Subclinical hypothyroidism * TSH was elevated at 5.2, but free T4 was WNL. * will therefore hold off on starting synthroid * to follow up with PCP for repeat thyroid function tests on discharge. * DVT prophylaxis: lovenox Medications at Discharge Home Medications albuterol sulfate 90 mcg/actuation aerosol inhaler 1 inh inhalation Q6H PRN shortness of breath or wheezing #8.5 grams 05/01/24 Hospital Course Operations None Procedures 2-D Echocardiogram and Nuclear stress test Summary of Care Provided Minutes Spent on Discharge: 45 Hospital Course: Patient is a 63-year-old female with a past medical history as outlined was admitted through the ED on 04/29/2024 with complaint of chest pain. She had been seen earlier in the day of admission in the ED but left AMA and subsequently came back. She says she has started having chest pain on the day of admission. It was nonradiating and she had no assisted shortness of breath. She had no other complaints. She did have a long history of smoking. Troponins were negative. She was admitted to be managed for chest pain to rule out ACS. She had stress test which was negative for any evidence of ischemia. Patient however had some transient hypoxia during admission. Chest x-ray did show emphysematous changes concerning for COPD and in light of her history of smoking was likely the patient had COPD. She had 2D echo which showed EF of 55% with no evidence of diastolic dysfunction and negative bubble study. She was weaned off the oxygen and felt much better. Of note during admission her TSH was checked and was elevated at 5.2 but free T4 was normal which indicated subclinical hypothyroidism. She was counseled to follow-up with her PCP for repeat thyroid function test within a month. Of note patient did not have any PCP so she was referred to [facility] [facility] to establish care. She was discharged on 05/01/2024 with an albuterol inhaler to use as needed for shortness of breath. She was strongly counseled to quit smoking. Patient seen and examined prior to discharge. She felt much better and had no complaints. She had an uneventful night. Review of systems otherwise negative labs and vitals reviewed. Home Medication reviewed and reconciled. Physical Exam Const alert, oriented x3, no apparent distress and well nourished General Appearance: cooperative, comfortable and well developed Orientation / Consciousness: awake HEENT normocephalic, head/scalp atraumatic, hearing grossly normal bilaterally, moist oral mucous membranes and oropharynx normal Eyes PERRL, EOMs intact bilaterally and conjunctivae normal Neck no lymphadenopathy, supple and no JVD Lymph Lymphatic: no lymphadenopathy noted and no lymphedema noted Resp normal respiratory effort, normal air movement, no retractions, no use of accessory muscles and clear to auscultation bilaterally Resp Narrative: mildly diminished breath sounds bibasally, no wheezes or crackles. On room air. Cardio regular rate, regular rhythm, S1 normal heart sound, S2 normal heart sound and no murmurs GI normal to inspection, nondistended, normoactive bowel sounds, soft to palpation, non-tender and non-distended Extremity normal to inspection, full ROM, normal capillary refill, no clubbing, cyanosis or edema and no calf tenderness General Extremity: no tenderness to palpation of joints or extremities Skin no rashes or lesions noted General Skin Exam: no breakdown Neuro oriented x3, CN's II-XII intact bilaterally, moves all extremities, no focal motor deficits and no sensory deficits noted Sensorium / Orientation: awake and alert Motor Exam: strength 5/5 throughout Psych thought process normal, cooperative and affect normal Weight / BMI Weight Weight: 94 lb 9.253 oz Body Mass Index (BMI) 17.3 ABG / Lab / Microbiology Data 04/30/24 03:24 04/30/24 03:24 Laboratory: Laboratory Results - last 24 hr 04/30/24 03:24: Free T4 1.30 Radiography Diagnostic Testing: Radiology Impression Echocardiogram 05/01/24 07:44 Interpretation Summary The left ventricular ejection fraction is 55 %. No evidence for diastolic dysfunction. Bubble contrast study is negative for PFO/ASD. Anterior leaflet diffuse mitral valve thickening. The study was technically difficult. Ordering Physician: Yamilet Matthews Referring Physician: BILLIE PCP Performed By: Rosemarie Camp, MARTÍN, RVT D/C Instructions Discharge Diet: Low fat / Low cholesterol Discharge Activity: Return to Normal Activity Weight Bearing Status: Weight bearing as tolerated Call your doctor if you observe: Fever of 101 or Higher, Shortness of breath, Dizziness, Swelling in the ankles and Chest pain DC O2, CPAP, BIPAP Needs Home O2 Discharge instructions: No Meaningful Use Info Meaningful Use Meaningful Use Diagnoses (Choose all that apply): None applicable Ischemic Stroke Statin Dosing Therapy Reference: STATIN DOSE THERAPY REFERENCE: * Patients > 75 years receive moderate or high dose statin therapy. * Patients 75 years or YOUNGER should receive HIGH intensity statin dose unless contraindicated. You will be required to document reason for non-treatment if statin daily dose does not meet guidelines. HIGH DOSE STATIN THERAPY DAILY Atorvastatin > than or = to 40 mg Rosuvastatin > than or = to 20 mg Amlodipine + Atorvastatin > than or = to 2.5/40 mg Ezetimibe + Simvastatin 10/80 mg Simvastatin 80mg Discharge Plan Admission Admit Date/Time: 04/29/24 23:57 Primary Reason for Your Visit: chest pain, hypothyroidism Attending Provider: Yamilet Matthews Primary Care Provider: Care Physician,No Primary Consulting Providers: Tor Law Instructions Forms: Work Excuse, Work / School Excuse Patient Instructions: ED Chest Pain, Noncardiac, ED Hypothyroidism Discharge Orders/Prescriptions Prescriptions: New albuterol sulfate 90 mcg/actuation HFA aerosol inhaler 1 inh inhalation Q6H PRN (Reason: shortness of breath or wheezing) Qty: 8.5 1RF Referrals / Follow Up: Erika Hudson MD [Med Staff - Active Staff] - Within 1 Month (see to establish PCP care.) Care Physician,No Primary [Primary Care Provider] - Disposition Disposition (needs filled in before D/C Order can be placed): Home, Self Care Charges/Coding Visit Charges Inpatient E&M: 13725 Disch Hosp >30min
--- NOTE | 2024-05-01 14:08 | DCINST_ITS ---
Discharge Instructions Diet Discharge Diet: Low fat / Low cholesterol DC O2, CPAP, BIPAP needs Home O2 Discharge instructions: No Dressing / Incision Discharge Activity: Return to Normal Activity Weight Bearing Status: Weight bearing as tolerated Dressing / Incision Call your doctor if you observe: Fever of 101 or Higher, Shortness of breath, Dizziness, Swelling in the ankles and Chest pain Follow Up Care Test Results: Test results from this visit will be discussed in further detail at your follow- up appointment, if applicable. Discharge Plan Admission Admit Date/Time: 04/29/24 23:57 Primary Reason for Your Visit: chest pain, hypothyroidism Attending Provider: Yamilet Matthews Primary Care Provider: Care Physician,No Primary Consulting Providers: Tor Law Instructions Forms: Work Excuse, Work / School Excuse Patient Instructions: ED Chest Pain, Noncardiac, ED Hypothyroidism Discharge Orders/Prescriptions Prescriptions: New albuterol sulfate 90 mcg/actuation HFA aerosol inhaler 1 inh inhalation Q6H PRN (Reason: shortness of breath or wheezing) Qty: 8.5 1RF Referrals / Follow Up: Erika Hudson MD [Med Staff - Active Staff] - Within 1 Month (see to establish PCP care.) Care Physician,No Primary [Primary Care Provider] - Disposition Disposition (needs filled in before D/C Order can be placed): Home, Self Care
--- NOTE | 2024-05-01 14:40 | CASEMGMT ---
Patient has order for discharge. RN CM in to discuss needs at discharge. RN CM provided patient with PCP list and information for [facility]. Patient denied further needs or help at discharge. Patient had no further questions or concerns.
[2024-05-01 15:03] VITALS: BP 136/72; PULSE 93; RESP 18; TEMP 36.4; O2SAT 95
--- NOTE | 2024-05-03 10:10 | CASEMGMT ---
DILSHAD CORREIA Follow-up: This RN CM received a prior auth request for levothyroxine. Noted in DC summary pt was to f/u with PCP for this treatment. Noted pt does not have a PCP but was given a list [facility] to establish care. Call placed to [facility] and [place] states that the levothryroxine script was cancelled so the prior auth is not pending and a new script would be needed if desired. Call placed to patient to discuss follow-up need for hypothyroidism per dc summary. Nonidentifying VM received, nondescript message left requesting a return call. Asia Arias RN [facility]
== END 2024-05-01 14:06 | disposition home or self-care (01) ==
LOC: ED 23:31 → PCU 04-30 00:12
PROVIDERS: Admitting Provider Family Medicine; Emergency Provider Emergency Medicine; Visit Provider Student in an Organized Health Care Education/Training Program
DX: R07.89 Other chest pain (principal); R09.02 Hypoxemia; Z53.29 Procedure and treatment not carried out because of patient's decision for other reasons; F17.210 Nicotine dependence, cigarettes, uncomplicated; F41.9 Anxiety disorder, unspecified; E03.9 Hypothyroidism, unspecified
CPT/HCPCS: 36415; 78452; 80048; 83735; 84439; 84443; 84484; 85025; 85379; 93005; 93017; 93306; 94640; 96361; 96374; 99221; 99284; 99406; A9500; A4216; G0378; J2785

== ENCOUNTER 2025-01-25 17:59 | Emergency (ER) | payer SELFPAY ==
[2025-01-25] VITALS (8 sets, daily range): BP systolic 130–159; BP diastolic 63–98; PULSE 100–105; RESP 22–203; TEMP 36.6; O2SAT 83–97; BMI 20.9
--- NOTE | 2025-01-25 18:11 | EKG12_ITS ---
Test Reason : SOB Blood Pressure : */* mmHG Vent. Rate : 95 BPM Atrial Rate : 95 BPM P-R Int : 128 ms QRS Dur : 92 ms QT Int : 340 ms P-R-T Axes : 82 91 83 degrees QTcB Int : 427 ms Sinus rhythm with occasional Premature ventricular complexes Rightward axis Septal infarct (cited on or before 29-Apr-2024) Abnormal ECG Confirmed by LUDY SANTANA ([id number]), state editor DESEAN PEACOCK ([id number]) on 01/27/2025 6:42:20 AM Referred By: Confirmed By: LUDY SANTANA
--- NOTE | 2025-01-25 18:12 | ED.VIS.DYS ---
HPI History of Present Illness Chief Complaint: Shortness of Breath Informant: patient and spouse/S.O. Onset/Context/Timing Onset: Days Context: gradual Timing: Continuous Quality: Positive for Wheezing Current Severity: Moderate Maximum Severity: Moderate Worsened by: Coughing Relieved by: Nothing Associated Symptoms cough and fever; Negative for sore throat, subjective, chills, sweats or clear sputum Chest Pain: Positive for None Narrative Narrative: 64-year-old female smoker history of COPD says she has been short of breath and nonproductive cough for last 3 days. Fever as high as 100.3. Nausea but no vomiting or diarrhea. No history of DVT or PE. No leg pain or swelling. No hemoptysis. No recent travel, surgery or immobilization. PE Risk Factors: Negative for Cancer, OCP + Smoking + > 35, Prior DVT or PE, Recent immobilization, Recent surgery or Recent travel Prior similar symptoms: Yes Recent Illness/Hospitalization: No PFSH PFSH Medical History History of shingles Home Medications ?Medication ?Instructions ?Recorded ?Last Taken ?Type albuterol sulfate 2.5 mg/3 mL 2.5 mg (3 mL) inhalation Q4H PRN 01/25/25 Unknown Rx (0.083 %) solution for nebulization #25 vials albuterol sulfate 90 mcg/actuation 2 puff inhalation Q4H PRN Wheezing 01/25/25 Unknown Rx aerosol inhaler (Ventolin HFA) 1 week #8.5 grams prednisone 20 mg tablet 40 mg (2 x 20 mg) PO DAILY 7 days 01/25/25 Unknown Rx #14 tabs Allergy/AdvReac Type Severity Reaction Status Date / Time No Known Allergies Allergy Verified 01/25/25 18:01 Social History Smoking Status: Current every day smoker tobacco type: cigarettes ROS ROS ED ROS Narrative Nonproductive cough. Fever. Wheezing. Shortness of breath. Constitutional Constitutional ED: Reports fever(s) Eyes Eyes: Denies blurry vision ENT ENT ED: Denies ear pain Cardiovascular Cardiovascular: Denies chest pain Respiratory/Chest Respiratory/Chest: Reports cough and dyspnea Gastrointestinal Gastrointestinal: Reports nausea; Denies abdominal pain Genitourinary Genitourinary ED: Denies dysuria or hematuria Musculoskeletal Musculoskeletal: Denies arthralgias or back pain Integumentary Denies abscess Neurologic Neurologic: Denies headache(s) Endocrine Endocrinology: Denies cold intolerance Hematologic/Lymphatic Hematologic/Lymphatic: Denies easy bleeding, easy bruising or lymphadenopathy Allergic/Immunologic Allergic/Immunologic ED: Denies mouth swelling, tongue swelling or urticaria EXAM Physical Exam Narrative Exam Narrative: 64-year-old female vital signs are stable her pulse ox is 97% on room air no signs hypoxia. She does have elevated respiratory rate of 22. She is wheezing. H EENT exam pupils round react light. Mildly dry mucous membranes. Neck nontender no JVD. No lymphadenopathy. Back nontender. Lungs inspiratory expiratory wheezing throughout. Prolonged expiratory phase. Equal symmetrical. No rales or rhonchi. Heart tachycardic 105 no murmur. Chest wall and ribs nontender. Abdomen soft nontender. Moving all 4 extremities. Calves nontender rheumatid out edema or cords. 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 Normal dorsi plantarflexion. Neurologically she is awake alert. Answering questions following commands. Const Vital Signs: 01/25/25 18:00 01/25/25 18:11 01/25/25 18:58 Temperature 98 F Temperature Source Temporal Pulse Rate 105 H 100 Respiratory Rate 22 H 26 H Respiratory Depth Respiratory Pattern Tachypnea Blood Pressure 153/79 H Blood Pressure Mean 103 Pulse Ox 97 96 Oxygen Delivery Method Room Air Room Air 01/25/25 19:00 01/25/25 19:29 Temperature Temperature Source Pulse Rate 102 H Respiratory Rate 24 H Respiratory Depth Normal Respiratory Pattern Tachypnea Blood Pressure 159/98 H Blood Pressure Mean 118 Pulse Ox 96 Oxygen Delivery Method Room Air Room Air MDM MDM MDM Narrative Medical decision making narrative: 64-year-old female suspect aspiration of COPD. Chest x-ray to evaluate for pneumonia or pneumothorax. EKG for cardiac activity. Blood work. DuoNeb and albuterol aerosols for the wheezing and bronchospasm. Solu-Medrol for the same. Repeat exam at 7:10 PM patient is doing better. Wheezing is much improved. She still has prolonged respiratory phase. Pulse ox on room air is 97%. She and I went over her test results. I think is exacerbation of COPD most likely secondary to viral syndrome. She will be discharged home with an inhaler. Albuterol for her home nebulizer. And prednisone 40 mg a day for a week. She is comfortable with the plan. She will be ambulated without oxygen prior to discharge to make sure she does not desaturate. She was also instructed long-term to try to quit smoking. She states she is trying. Repeat exam patient is resting comfortably around 7:58 PM. I wanted to talk to her because when the nurses walked her her pulse ox dropped down to 86%. Currently she is in the mid 90s. She absolutely does not want to be admitted. She has a nebulizer at home I wrote her for an inhaler and steroids. I suspect this is acute on chronic underlying COPD exacerbation. She is awake alert she is competent to make this decision. She knows if she gets worse to return. is at bedside and he is comfortable with her being discharged. History & Record Review Discussion w/independent historian: Patient and Family Additional record(s) reviewed:: Prior outpatient record, Prior ED visit and Prior labs Lab Data Attestation: I reviewed the patient's lab results. Lab results narrative: CBC shows a white count of 14.9. H&H of 13 and 39. Platelets 197. Electrolytes show a gap of 15. BUN and creatinine of 15 and 0.6. Glucose 137. Initial troponin 21. Chest x-ray shows chronic changes consistent with COPD. No pneumothorax. No pneumonia. Labs: Laboratory Results - last 24 hr 01/25/25 18:24 WBC 14.9 H RBC 4.26 Hgb 13.3 Hct 39.0 MCV 91.5 MCH 31.2 MCHC 34.1 RDW Std Deviation 45.7 H RDW Coeff of Lakhwinder 13.5 Plt Count 197 MPV 10.6 Immature Gran % (Auto) 0.300 Neut % (Auto) 74.5 H Lymph % (Auto) 11.9 L [place] % (Auto) 12.7 H Eos % (Auto) 0.3 Baso % (Auto) 0.3 Absolute Neuts (auto) 11.1 H Absolute Lymphs (auto) 1.78 Nucleated RBC % 0 Reactive Lymphocytes RARE RBC Morphology NORM C+C Sodium 137 Potassium 3.9 Chloride 101 Carbon Dioxide 21.5 Anion Gap 15 BUN 15 Creatinine 0.67 L Est GFR (MDRD) Non-Af 97 BUN/Creatinine Ratio 21.6 H Glucose 137 H Calcium 9.4 Troponin T High Sens 21 H D Radiography Chest X-Ray - ED: 2 View, Read by ED Physician, Heart, Lungs, Mediastinum, Bony Structures, No Acute Disease, Chronic Changes and - (No pneumothorax. No pneumonia.) Diagnostic Testing: Chest x-ray, 2 views, AP and lateral, interpreted by myself shows chronic changes consistent with COPD. Normal cardiac silhouette. Normal mediastinum. No pneumonia. No pneumothorax. Rhythm Strip Rhythm Strip: Sinus Rhythm Rate: 95 Ectopy: PVC(s) EKG Initial EKG: Attestation: I personally reviewed and interpreted this EKG as follows: Interpretation: Sinus Rhythm and No Acute Injury Pattern Comments: Normal sinus rhythm. Rate of 95. No acute signs of MA or ischemia. No dysrhythmia. Occasional PVCs. Discharge Plan Triage Chief Complaint: Shortness of Breath ED Provider: Nadeem Saha Dx/Rx/DC Orders Clinical Impression: Viral URI, Acute exacerbation of chronic obstructive pulmonary disease, Hypoxia Instructions: ED COPD Flare, ED URI, Viral W/ Wheezing (Adult) Prescriptions: New prednisone 20 mg tablet 40 mg PO DAILY 7 Days Qty: 14 0RF albuterol sulfate 2.5 mg /3 mL (0.083 %) solution for nebulization 2.5 mg inhalation Q4H PRN Qty: 25 0RF Rx Instructions: Use q4 hours and PRN for wheezing albuterol sulfate [Ventolin HFA] 90 mcg/actuation HFA aerosol inhaler 2 puff inhalation Q4H MDD 6 times per day PRN (Reason: Wheezing) 7 Days Qty: 8.5 1RF Primary Care Provider: Care Physician,No Primary Referrals: Care Physician,No Primary [Primary Care Provider, Medical] Tiara Phelan, GAS ADJUSTER-C [facility] - 3-5 Days Activity Restrictions/Additional Instructions: Plenty fluids and rest Use your inhaler 2 puffs every 2-4 hours as needed. Use your nebulizer every 4-6 hours as needed. Steroids daily 40 mg a day start tomorrow. We gave you steroids to the IV today. Follow-up with local primary care physician. Long-term continue to work on stopping to smoke. Return if feeling worse. Print Language: Mongolian Disposition Disposition: Home, Self Care
[2025-01-25] MEDS: Albuterol 2.5 MG/3 ML VIAL.NEB. INHALATION ×3 (18:34→18:35)
[2025-01-25 18:35] LABS: Hematocrit 39.0 % (37-47); Hemoglobin 13.3 g/dL (12.0-15.0); Immature Granulocytes Count 0.050 X10^3/uL (0.0-0.0); Mean Corp Hgb Conc 34.1 g/dL (32-36); Mean Corpuscular Volume 91.5 fL (81-99); Mean Platelet Vol. 10.6 fl (6.2-12.0); NRBC Flagged by Analyzer 0 % (0-5); POSITIVE DIFFERENTIAL YES; Platelet Count 197 K/mm3 (150-450); RBC Distribution Width CV 13.5 % (11.6-14.6); RBC Distribution Width SD 45.7 fl (35.1-43.9); Red Blood Count 4.26 M/mm3 (4.2-5.4); White Blood Count 14.9 K/mm3 (4.4-11.0)
[2025-01-25 18:36] LABS: Differential Indicated SCAN CRITERIA MET
--- OUTSIDE RECORDS SUMMARY | 2025-01-25 18:47 | XMS RPT_ITS | CCD ---
Author Organization [facility] Care Team Providers Care Account Services Coordinator Name Role Phone Alec Coughlin Primary Care Unavailable Lo Campos Admitting Unavailable Lo Campos Attending Unavailable NO, PHYSICIAN Primary Care Unavailable VIJAY BOSCH Admitting Unavailable No, Physician Primary Care Provider Unavailabl e Required, No Pcp Unavailable Unavailable Keri Kim Unavailable Dr. Keri Kim Attending Unavail able REZA DO~[phone], JUAQUIN MUELLER Attendi ng Unavailable REZA DO~[phone], JUAQUIN MUELLER Admitti ng Unavailable AA NO PCP, NO PCP Primary Care Unavailable HANNY TRAN Primary Care Unavailable Care Physician, No Primary Primary Care Unava ilable Ani Tor Attending Unavailable Andrade, Tor Consulting Unavailable Andrade, Tor Admitting Unavailable Andrew, Hank Attending Unavailable Care Physician, No Primary Primary Care Unava ilable Byron, Yamilet Yris Consulting Unavailable Byron Yamilet Yris Attending Unavailable Andrew, Hank Attending Unavailable Care Physician, No Primary Primary Care Unava ilable Lindaam, Yamilet Yris Attending Unavailable Andrade, Tor Admitting Unavailable Care Physician, No Primary Primary Care Unava ilable Tor Andrade Consulting Unavailable Care Physician, No Primary Primary Care Unava ilable Tariq Carson Attending Unavailable Allergies Allergy Classification Reported Allergen(s) Allergy Type Date of Onset Reaction(s) Facility (1 source) rOPINIRole; Translations: [Requip] Drug Allergy [facility] Repository Medications Current Medications Medication Drug Class(es) Dates Sig (Normalized) Sig (Original) acetaminophen 325 mg / HYDROcodone bitartrate 5 mg oral tablet (1 source) Opioid Agonist Start: 05-31-2021 take 1 tablet by mouth every six hours Hydrocodone-Acet aminophen Active 1 TABLET PO EVERY 6 HOURS 12 May 31, 2021 9:41am ibuprofen 600 mg oral tablet (1 source) Nonsteroidal Anti-inflammatory Drug Start: 12-15-2018 End: 01-14-2019 take 1 tablet by mouth every six hours as needed ibuprofen (ADVIL,MOTRIN) 600 MG tablet Take 1 (one) tablet (600 mg total) by mouth every 6 (six) hours as needed for pain . 30 tablet 0 12/15/2018 01/14/2019 Active predniSONE 10 mg oral tablet (1 source) Start: 05-31-2021 take 50 mg by mouth once daily Prednisone Active 50 MG PO DAILY 25 May 31, 2021 9:42am Problems Problem Classification Problem Date Documented Da te Episodic/Chronic Blindness and vision defects (2 sources) Unspecified visual disturbance; Translations: [UNSPECIFIED VISUAL DISTURBANCE] Onset: 05-23-2023 Episodic Diseases of white blood cells (1 source) Elevated white blood cell count, unspecified; Translations: [Elevated white blood cell count, unspecified] Onset: 08-02-2022 Chronic Headache; including migraine (1 source) Headache; including migraine; Translations: [HEADACHE UNSPECIFIED] Onset: 05-23-2023 Nausea and vomiting (1 source) Nausea; Translations: [Nausea] Onset: 08-02-2022 Episodic Nonspecific chest pain (5 sources) Chest pain; Translations: [Chest pain, unspecified] Onset: 08-02-2022 08-02-2022 Episodic Other lower respiratory disease (1 source) Chest pain on breathing; Translations: [Chest pain on breathing] Onset: 08-02-2022 Episodic Other lower respiratory disease (1 source) Shortness of breath; Translations: [Shortness of breath] Onset: 08-02-2022 Episodic Other upper respiratory infections (2 sources) Acute upper respiratory infection, unspecified; Translations: [Acute upper respiratory infection, unspecified] Onset: 03-22-2024 Episodic Paralysis (2 sources) Cerebral palsy 08-02-2022 Chronic Comment on above: CP Spondylosis; intervertebral disc disorders; other back problems (1 source) Cervical nerve root pain; Translations: [Radiculopathy, cervical region] Episodic Substance-related disorders (1 source) Nicotine dependence, cigarettes, uncomplicated; Translations: [Nicotine dependence, cigarettes, uncomplicated] Onset: 08-02-2022 Chronic Unclassified (1 source) Sprain of right wrist; Translations: [Sprain of right wrist, initial encounter] Urinary tract infections (2 sources) Acute cystitis with hematuria; Translations: [Acute cystitis with hematuria] Onset: 03-22-2024 Episodic Results Test Name Value Interpretation Reference Range Facility Discharge Instructionon Discharge Instruction [facility] Medical Records Department [address] [place] [address] Instructions for Home/Discharge Instructions 05/01/24 1408 MR#: [id number] Acct: [id number] Name: WILNER PAZ Rep #: [id number] : 1960 63 From: Yamilet Matthews MD PCP: Za Physician,No Primary Status:ADM ANA Discharge Instructions Diet Discharge Diet: Low fat / Low cholesterol DC O2, CPAP, BIPAP needs Home O2 Discharge instructions: No Dressing / Incision Discharge Activity: Return to Normal Activity Weight Bearing Status: Weight bearing as tolerated Dressing / Incision Call your doctor if you observe: Fever of 101 or Higher, Shortness of breath, Dizziness, Swelling in the ankles and Chest pain Follow Up Care Test Results: Test results from this visit will be discussed in further detail at your follow-up appointment, if applicable. Discharge Plan Admission Admit Date/Time: 04/29/24 23:57 Primary Reason for Your Visit: chest pain, hypothyroidism Attending Provider: Yamilet Matthews Primary Care Provider: Care Physician,No Primary Consulting Providers: Tor Andrade Instructions Forms: Work Excuse, Work / School Excuse Patient Instructions: ED Chest Pain, Noncardiac, ED Hypothyroidism Discharge Orders/Prescriptions Prescriptions: New albuterol sulfate 90 mcg/actuation HFA aerosol inhaler 1 inh inhalation Q6H PRN (Reason: shortness of breath or wheezing) Qty: 8.5 1RF Referrals / Follow Up: Erika Hudson MD [Med Staff - Active Staff] - Within 1 Month (see to establish PCP care.) Care Physician,No Primary [Primary Care Provider] - Disposition Disposition (needs filled in before D/C Order can be placed): Home, Self Care 05/01/24 1408 Yamilet Matthews MD CC: Dr. Tor Andrade MD; No Primary Care Physician Signed Normal [facility] Echo Completeon 05-01-2024 Echo Complete [facility] [address] [place] [address] Echo Complete 05/01/24 0932 MR#: [id number] Acct: [id number] Name: WILNER PAZ Rep #: [id number] : 1960 63 From: Hank Morales MD Attending Dr: Dr. Yamilet Matthews MD Status: AD M ANA Ordering Dr: Yamilet Matthews MD Date: 05/01/24 Location: [facility] Sex: F C Admitted: 04/29/24 Reason For Study Reason For Study: DYSPNEA/SOB Procedure This was a 2D Doppler, Color Flow transthoracic echocardiogram. The study was technically difficult. Exam performed portable in patient room. Left Ventricle Normal size and thickness. The left ventricular ejection fraction is 55 %. No evidence for diastolic dysfunction. Right Ventricle Normal right ventricle. Atria The left and right atria are normal. Bubble contrast study is negative for PFO/ASD. Mitral Valve Anterior leaflet diffuse mitral valve thickening. Trivial mitral valve insufficiency. Tricuspid Valve Trivial tricuspid valve insufficiency. Unable to estimate RV systolic pressure due to insufficient tricuspid regurgitant envelope. Aortic Valve The aortic valve is not well visualized in the short axis view. There is no aortic stenosis. No aortic valve insufficiency. Pulmonic Valve The pulmonic valve is not well visualized. Great Vessels The aortic root is not well visualized. Pericardium/Pleural No pericardial effusion. Medication 22 gauge I.V. with prn adaptor inserted into right arm. Performed a rapid injection of agitated mix of 9 cc saline and 1cc air to assess for atrial septal defect. MMode/2D Measurements Calculations LVIDd: 3.4 cm IVSd: 0.79 cm Ao root diam: 2.8 cm LVIDs: 2.5 cm LVPWd: 0.87 cm RVDd: 2.2 cm FS: 28.3 % LAV(MOD-bp): 33.6 ml LVAd ap4: 18.5 cm2 SV(MOD-sp4): 23.3 ml LAV(MOD-bp) Indexed: 24.2 ml/m2 LVLd ap4: 6.7 cm SI(MOD-sp4): 16.8 ml/m2 LAV(MOD-sp2): 28.0 ml EDV(MOD-sp4): 42.8 ml LAV(MOD-sp4): 29.8 ml EDV(sp4-el): 43.5 ml LVAs ap4: 11.1 cm2 LVLs ap4: 5.2 cm ESV(MOD-sp4): 19.4 ml ESV(sp4-el): 20.1 ml EF(MOD-sp4): 54.6 % EF(sp4-el): 53.8 % SV(sp4-el): 23.4 ml LA A4 area: 11.5 cm2 LA dimension(2D): 2.2 cm RA A4 area: 9.7 cm2 TAPSE: 1.5 cm Time Measurements MV dec time: 0.17 sec Doppler Measurements Calculations MV E max asbine: 59.2 cm/sec Lat Peak E' Sabine: 8.1 cm/sec Med Peak E' Sabine: 9.5 cm/sec MV A max sabine: 92.7 cm/sec E/E' lat: 7.3 E/E' med: 6.3 MV E/A: 0.64 MV V2 max: 92.1 cm/sec MV P1/2t max sabine: 77.8 cm/sec Ao V2 max: 119.5 cm/sec MV max P.4 mmHg MV P1/2t: 57.0 msec Ao max P.7 mmHg MV V2 mean: 54.6 cm/sec MV dec slope: 399.9 cm/sec2 Ao V2 mean: 79.0 cm/sec MV mean P.3 mmHg MVA(P1/2t): 3.9 cm2 Ao mean P.8 mmHg MV V2 VTI: 16.7 cm Ao V2 VTI: 21.4 cm AV (velocity ratio): 0.94 LV V1 max: 103.6 cm/sec PA V2 max: 88.3 cm/sec LV V1 max P.3 mmHg LV V1 mean P.1 mmHg LV V1 mean: 67.8 cm/sec LV V1 VTI: 20.1 cm ECHO/Echo Complete Interpretation Summary The left ventricular ejection fraction is 55 %. No evidence for diastolic dysfunction. Bubble contrast study is negative for PFO/ASD. Anterior leaflet diffuse mitral valve thickening. The study was technically difficult. Ordering Physician: Yamilet Matthews Referring Physician: BILLIE PCP Performed By: Rosemarie Camp, MARTÍN, RVT 05/01/24 1343 Date Hank Morales MD CC: Dr. Yamilet Matthews MD; No Primary Care Physician Date Dictated: 05/01/24931 Date Transcribed: 05/01/24 134 Integrated Campaign Manager: Signed Normal [facility] Basic Metabolic Profile (BMP )on 04-30-2024 BUN/CRE 37.6 RATIO High 10-20 [facility] Comment on above: Performed By: #### L 501.4021, L100.0100, L500.2500 #### [facility] Laboratory [address] [place], [address] Calcium [Mass/Vol] 9.0 mg/dL Normal 7.6-11.0 [facility] Comment on above: Performed By: #### L 501.4021, L100.0100, L500.2500 #### [facility] Laboratory [address] [place], [address] Chloride [Moles/Vol] 105 mmol/L Normal 98-108 [facility] Comment on above: Performed By: #### L 501.4021, L100.0100, L500.2500 #### [facility] [address] [place], [address] CO2 [Moles/Vol] 23.9 mmol/L Normal 21.0-32.0 [facility] Comment on above: Performed By: #### L 501.4021, L100.0100, L500.2500 #### [facility] Laboratory [address] [place], [address] Creatinine [Mass/Vol] 0.52 mg/dL Low 0.70-1.20 [facility] Comment on above: Performed By: #### L 501.4021, L100.0100, L500.2500 #### [facility] [address] [place], [address] ECRCL 74.99 ml/min Normal 50-250 [facility] Comment on above: Performed By: #### L 501.4021, L100.0100, L500.2500 #### [facility] [address] [place], [address] GAP 9 Normal 5-15 [facility] Comment on above: Performed By: #### L 501.4021, L100.0100, L500.2500 #### [facility] [address] [place], [address] GFR/1.73 sq M.predicted among non-blacks MDRD (S/P/Bld) [Vol rate/Area] 104 mL/min/{1.73_m2} Normal >60 [facility] Comment on above: Result Comment: mL/m in/1.73m2 CKD-EPI Creatinine Equation (2020) Performed By: #### L 501.4021, L100.0100, L500.2500 #### [facility] [address] [place], [address] Glucose [Mass/Vol] 97 mg/dL Normal 70-99 [facility] Comment on above: Performed By: #### L 501.4021, L100.0100, L500.2500 #### [facility] [address] [place], [address] Potassium [Moles/Vol] 4.1 mmol/L Normal 3.3-5.1 [facility] Comment on above: Performed By: #### L 501.4021, L100.0100, L500.2500 #### [facility] [address] [place], [address] Sodium [Moles/Vol] 138 mmol/L Normal 133-145 [facility] Comment on above: Performed By: #### L 501.4021, L100.0100, L500.2500 #### [facility] [address] [place], [address] Urea nitrogen [Mass/Vol] 20 mg/dL High 4-19 [facility] Comment on above: Performed By: #### L 501.4021, L100.0100, L500.2500 #### [facility] [address] [place], [address] CBC W/Diff, Automatedon 03-0 -2024 Absolute Lymph 1.93 X10 3/uL Normal 0.83-4.51 [facility] Comment on above: Performed By: #### L 501.4021, L100.0100, L500.2500 #### [facility] [address] [place], [address] Absolute Neut 4.7 X10 3/uL Normal 2.0-7.7 [facility] Comment on above: Performed By: #### L 501.4021, L100.0100, L500.2500 #### [facility] [address] [place], [address] Basophils/100 WBC (Bld) 0.5 % Normal 0-1 [facility] Comment on above: Performed By: #### L 501.4021, L100.0100, L500.2500 #### [facility] [address] [place], [address] Eosinophils/100 WBC (Bld) 2.9 % Normal 0-5 [facility] Comment on above: Performed By: #### L 501.4021, L100.0100, L500.2500 #### [facility] [address] [place], [address] Erythrocyte distribution width (RBC) [Ratio] 13.8 % Normal 11.6-14.6 [facility] Comment on above: Performed By: #### L 501.4021, L100.0100, L500.2500 #### [facility] [address] [place], [address] Hematocrit (Bld) [Volume fraction] 37.9 % Normal 37-47 [facility] Comment on above: Performed By: #### L 501.4021, L100.0100, L500.2500 #### [facility] [address] [place], [address] Hemoglobin (Bld) [Mass/Vol] 13.0 g/dL Normal 12.0-15.0 [facility] Comment on above: Performed By: #### L 501.4021, L100.0100, L500.2500 #### [facility] [address] [place], [address] IG% 0.300 Normal 0.0-0.9 [facility] Comment on above: Result Comment: IG% - Immature Granulocytes (promyelocytes, myelocytes and metamyelocytes) > 1% indicates that a LEFT SHIFT is Present. Performed By: #### L 501.4021, L100.0100, L500.2500 #### [facility] [address] [place], [address] Lymphocytes/100 WBC (Bld) 25.2 % Normal 19-41 [facility] Comment on above: Performed By: #### L 501.4021, L100.0100, L500.2500 #### [facility] [address] [place], [address] MCH (RBC) [Entitic mass] 32.2 pg High 27.0-32.0 [facility] Comment on above: Performed By: #### L 501.4021, L100.0100, L500.2500 #### [facility] [address] [place], [address] MCHC (RBC) [Mass/Vol] 34.3 g/dL Normal 32-36 [facility] Comment on above: Performed By: #### L 501.4021, L100.0100, L500.2500 #### [facility] [address] [place], [address] MCV (RBC) [Entitic vol] 93.8 fL Normal 81-99 [facility] Comment on above: Performed By: #### L 501.4021, L100.0100, L500.2500 #### [facility] [address] [place], [address] Monocytes/100 WBC (Bld) 10.3 % High 0-10 [facility] Comment on above: Performed By: #### L 501.4021, L100.0100, L500.2500 #### [facility] [address] [place], [address] Neutrophils/100 WBC (Bld) 60.8 % Normal 47-70 [facility] Comment on above: Performed By: #### L 501.4021, L100.0100, L500.2500 #### [facility] [address] [place], [address] Nucleated RBC (Bld) [#/Vol] 0 10*3/uL Normal 0-5 [facility] Comment on above: Performed By: #### L 501.4021, L100.0100, L500.2500 #### [facility] [address] [place], [address] Platelet mean volume (Bld) [Entitic vol] 10.9 fL Normal 6.2-12.0 [facility] Comment on above: Performed By: #### L 501.4021, L100.0100, L500.2500 #### [facility] [address] [place], [address] Platelets (Bld) [#/Vol] 166 10*3/uL Normal 150-450 [facility] Comment on above: Performed By: #### L 501.4021, L100.0100, L500.2500 #### [facility] [address] [place], [address] RBC (Bld) [#/Vol] 4.04 10*6/uL Low 4.2-5.4 [facility] Comment on above: Performed By: #### L 501.4021, L100.0100, L500.2500 #### [facility] [address] [place] [place], [address] RDW SD 47.4 fl High 35.1-43.9 [facility] Comment on above: Performed By: #### L 501.4021, L100.0100, L500.2500 #### [facility] Laboratory [address] [place], [address] WBC (Bld) [#/Vol] 7.7 10*3/uL Normal 4.4-11.0 [facility] Comment on above: Performed By: #### L 501.4021, L100.0100, L500.2500 #### [facility] Laboratory [address] [place], [address] Discharge Instructionon Discharge Instruction [facility] Medical Records Department [address] [place] [address] Instructions for Home/Discharge Instructions 04/30/24 1722 MR#: [id number] Acct: [id number] Name: PAZERVIN DALEYAICHA CHRISTINA Rep #: [id number] : 1960 63 From: Yamilet Matthews MD PCP: Care Physician,No Primary Status:ADM ANA Discharge Instructions Diet Discharge Diet: Low fat / Low cholesterol DC O2, CPAP, BIPAP needs Home O2 Discharge instructions: No Dressing / Incision Discharge Activity: Return to Normal Activity Weight Bearing Status: Weight bearing as tolerated Dressing / Incision Call your doctor if you observe: Fever of 101 or Higher, Shortness of breath, Dizziness, Swelling in the ankles and Chest pain Follow Up Care Test Results: Test results from this visit will be discussed in further detail at your follow-up appointment, if applicable. Discharge Plan Admission Admit Date/Time: 04/29/24 23:57 Primary Reason for Your Visit: chest pain, hypothyroidism Attending Provider: Yamilet Matthews Primary Care Provider: Care Physician,No Primary Consulting Providers: Tor Andrade Instructions Patient Instructions: ED Chest Pain, Noncardiac, ED Hypothyroidism Discharge Orders/Prescriptions Prescriptions: New levothyroxine 25 mcg capsule 25 mcg PO DAILY Qty: 30 0RF Referrals / Follow Up: Erika Hudson MD [Med Staff - Active Staff] - Within 1 Month (see to establish PCP care.) Care Physician,No Primary [Primary Care Provider] - Disposition Disposition (needs filled in before D/C Order can be placed): Home, Self Care 04/30/24 1722 Yamilet Matthews MD CC: Dr. Tor Andrade MD; No Primary Care Physician Signed Normal [facility] L499.0042on 04-30-2024 Trop T Delta 2 Normal [facility] Comment on above: Result Comment: If c linical suspicion for ACS is high, suggest getting a third troponin. Otherwise, stress test or CTCA. Performed By: #### L 501.4021, L100.0100, L500.2500 #### [facility] [address] [place], [place], [address] Trop T High Sen 16 ng/L High <=14 [facility] Comment on above: Performed By: #### L 501.4021, L100.0100, L500.2500 #### [facility] [address] [place], [address] L499.0043on 04-30-2024 Trop T Delta 3 Normal [facility] Comment on above: Result Comment: Down stream testing and, if negative, consider other etiologies for elevated troponin. Performed By: #### L 501.4021, L100.0100, L500.2500 #### [facility] [address] [place], [address] Trop T High Sen 17 ng/L High <=14 [facility] Comment on above: Performed By: #### L 501.4021, L100.0100, L500.2500 #### [facility] [address] [place], [address] Stress Reporton 04-30-2024 Stress Report [facility] [address] [place] [address] MR#: [id number] Acct: [id number] Name: WILNER PAZ Rep #: [id number] : 1960 63 From: Hank Moralse MD Primary Care: Care Physician,No Primary Status: ADM ANA Referring Dr: Sex: F C Stress Test Report Date: 04/30/2024 Procedure: Pharmacologic stress nuclear imaging study Indications: Chest pain Consent: Per the patient Procedure: The patient underwent pharmacologic (Regadenoson 0.4mg ) evaluation with a peak heart rate of 96 beats per minute (61%predicted maximal heart rate) and a peak blood pressure of 122/68 mmHg. The baseline ECG demonstrated sinus rhythm. The peak pharmacologic ECG demonstrated no ischemic changes. There were no cardiac dysrhythmias pretest, during pharmacologic infusion, or recovery. There was no complaint of chest discomfort during pharmacologic infusion or recovery. The patient was injected with 12.0 millicuries of technetium 99m Cardiolite and subsequently rest SPECT Cardiolite nuclear imaging was obtained in the horizontal long, vertical long, and short axis views. The patient underwent pharmacologic (Regadenoson) evaluation. The patient was injected with 34.9 millicuries of technetium 99m Cardiolite and subsequently stress SPECT Cardiolite nuclear imaging was obtained in the horizontal long, vertical long, and short axis views. A gated Cardiolite study at peak stress was obtained. The examination was stopped secondary to completion of protocol. Rest and stress SPECT Cardiolite nuclear imaging status post realignment, normalization, and attenuation correction demonstrate no fixed or reversible perfusion defects. There is end systolic thickening and brightening. The gated Cardiolite study demonstrates myocardial thickening and inward wall motion. The reported LVEF is 74%. Impression: 1. Pharmacologic (Regadenoson) evaluation 2. Peak pharmacologic ECG with no ischemic changes. 3. There were no cardiac dysrhythmias pretest, during pharmacologic infusion, or recovery. 5. Rest and stress SPECT Cardiolite nuclear imaging demonstrate relative uniform tracer uptake and myocardial perfusion appearing within normal limits. 6. The gated Cardiolite study reports an LVEF of 74%. This note was generated with [employer] software. It may contain incorrect words, spelling, and punctuation that were not noted in checking the note before signing. 04/30/24 1007 Date Hank Morales MD CC: Dr. Georgia Sargent DO; Dr. Yamilet Matthews MD; Dr. Tor Andrade MD; No Primary Care Physician Date Dictated: 04/30/24 1005 Date Transcribed: 04/30/24 100 Integrated Campaign Manager: SARATH Signed Normal [facility] T4 Free Directon 04-30-2024 T4 FREE DIRECT 1.30 ng/dL Normal 0.76-1.46 [facility] [facility] Comment on above: Performed By: #### L 506.0400 #### [facility] [address] [facility] [place], [address] 12 Lead EKGon 04-29-2024 12 Lead EKG [facility] Cardi[facility] Services [address] [place] [address] 12 Lead EKG 04/30/24 0209 MR#: [id number] Acct: [id number] Name: WILNER PAZ Rep #: [id number] : 1960 63 From: Alex Mchugh MD Attending Dr: Dr. Yamilet Matthews MD Status: AD Celeste ANA Ordering Dr: Georgia Sargent DO Date: 04/29/24 Location: U Sex: F C Admitted: 04/29/24 Test Reason : CP ADMIT Blood Pressure : */* mmHG Vent. Rate : 85 BPM Atrial Rate : 85 BPM P-R Int : 134 ms QRS Dur : 100 ms QT Int : 372 ms P-R-T Axes : 86 91 78 degrees QTcB Int : 442 ms Normal sinus rhythm Rightward axis Septal infarct , age undetermined Abnormal ECG When compared with ECG of 29-Apr-2024 22:10, MANUAL COMPARISON REQUIRED DATA IS UNCONFIRMED Confirmed by Alex Mchugh ([id number]), editor news DESEAN PEACOCK ([id number]) on 04/30/2024 10:45:54 AM Referred By: DR ANDRADE Confirmed By: Alex Mchugh 04/30/24 1045 Date Alex Mchugh MD CC: Dr. Georgia Sargent DO; Dr. Yamilet Matthews MD; No Primary Care Physician Signed Normal [facility] 12 Lead EKG [facility] Cardi[facility] Services [address] [place] [address] 12 Lead EKG 04/29/24 2210 MR#: [id number] Acct: [id number] Name: WILNER PAZ Rep #: [id number] : 1960 63 From: Alex Mchugh MD Attending Dr: Status: DEP ER Ordering Dr: Tariq Carson MD Date: 04/29/24 Location: ED Sex: F C Admitted: Test Reason : DYSRHYTHMIA Blood Pressure : */* mmHG Vent. Rate : 87 BPM Atrial Rate : 87 BPM P-R Int : 128 ms QRS Dur : 86 ms QT Int : 374 ms P-R-T Axes : 84 92 77 degrees QTcB Int : 450 ms Normal sinus rhythm Right atrial enlargement Rightward axis Pulmonary disease pattern Cannot rule out Septal infarct , age undetermined Abnormal ECG When compared with ECG of 29-Apr-2024 09:43, MANUAL COMPARISON REQUIRED DATA IS UNCONFIRMED Confirmed by Alex Mchugh ([id number]), editor news LE MENDOZA ([id number]) on 05/01/2024 7:34:19 AM Referred By: Confirmed By: Alex Mchugh 05/01/24 0734 Date Alex Mchugh MD CC: Dr. Tariq Carson MD; No Primary Care Physician Signed [facility] 12 Lead EKG [facility] Cardi[facility] [address] [place] [address] 12 Lead EKG 04/29/24 0943 MR#: [id number] Acct: [id number] Name: WILNER PAZ Rep #: [id number] : 1960 63 From: Alex Mchugh MD Attending Dr: Dr. Yamilet Matthews MD Status: CHIP Alonso [facility] Ordering Dr: Yamilet Matthews MD Date: 04/29/24 Location: [facility] Sex: F C Admitted: 04/29/24 Test Reason : CP Blood Pressure : */* mmHG Vent. Rate : 99 BPM Atrial Rate : 99 BPM P-R Int : 126 ms QRS Dur : 86 ms QT Int : 360 ms P-R-T Axes : 79 91 64 degrees QTcB Int : 462 ms Normal sinus rhythm Rightward axis Septal infarct , age undetermined Abnormal ECG No previous ECGs available Confirmed by Alex Mchugh ([id number]), editor news LE MENDOZA ([id number]) on 05/01/2024 7:36:53 AM Referred By: Confirmed By: Alex Mchugh 05/01/24 0736 Date Alex Mchugh MD CC: Dr. Yamilet Matthews MD; No Primary Care Physician Signed [facility] Basic Metabolic Profile (BMP )on 04-29-2024 Anion gap [Moles/Vol] 12 mmol/L Normal - [facility] Comment on above: Performed By: #### L 501.4021, L100.0100, L500.2500 #### [facility] Laboratory [address] [place], [address] BUN/CRE 30.5 RATIO High 10-20 [facility] Comment on above: Performed By: #### L 501.4021, L100.0100, L500.2500 #### [facility] [address] [place], [address] Calcium [Mass/Vol] 9.0 mg/dL Normal 7.6-11.0 [facility] Comment on above: Performed By: #### L 501.4021, L100.0100, L500.2500 ####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 [facility] Comment on above: Performed By: #### L [id number], [id number] #### Zinc Plater: PARI FINK ([phone]) [facility]) [address] [place] [address] BILIRUBIN, TOTAL PRESENCE IN URINE Negative Normal Negative [facility] Comment on above: Performed By: #### L [id number], [id number] #### Zinc Plater: PARI FINK ([id number]) [facility]) [address] [place] [address] CALCIUM OXALATE CRYSTALS (#/HPF) IN URINE Moderate Abnormal Negative [facility] Comment on above: Performed By: #### L [id number], [id number] #### Zinc Plater: PARI FINK ([id number]) [facility] ([facility]) [address] [place] [address] Clarity (U) Cloudy Abnormal Clear [facility] Comment on above: Performed By: #### L [id number], [id number] #### Zinc Plater: PARI FINK ([id number]) [facility] ([facility]) [address] [place] [address] Color (U) Red Abnormal Lt. Yellow [facility] Comment on above: Performed By: #### L [id number], [id number] #### Zinc Plater: PARI FINK ([id number]) [facility] ([facility]) [address] [place] [address] GLUCOSE (MG/DL) IN URINE Normal Normal Normal (<70) [facility] Comment on above: Performed By: #### L [id number], [id number] #### Zinc Plater: PARI FINK ([id number]) [facility] ([facility]) [address] [place] [address] HEMOGLOBIN PRESENCE IN URINE Negative Normal Negative [facility] Comment on above: Performed By: #### L [id number], [id number] #### Zinc Plater: PARI FINK ([id number]) [facility]) [address] [place] [address] HYALINE CASTS (#/LPF) IN URINE SEDIMENT BY MICROSCOPY Negative Normal Negative [facility] Comment on above: Performed By: #### L [id number], [id number] #### Zinc Plater: PARI FINK ([id number]) [facility] ([facility]) [address] [place] [address] Ketones Ql (U) Negative Normal Negative [facility] Comment on above: Performed By: #### L [id number], [id number] #### Zinc Plater: PARI FINK ([id number]) [facility] ([facility]) [address] [place] [address] LEUKOCYTE ESTERASE PRESENCE IN URINE BY TEST STRIP 250 Toby/uL Abnormal Negative [facility] Comment on above: Performed By: #### L [id number], [id number] #### Zinc Plater: PARI FINK ([id number]) [facility] ([facility]) [address] [place] [address] MUCUS (#/LPF) IN URINE SEDIMENT Moderate Abnormal Negative [facility] Comment on above: Performed By: #### L [id number], [id number] #### Zinc Plater: PARI FINK ([id number]) [facility] ([facility]) [address] [place] [address] NITRITE PRESENCE IN URINE Positive Abnormal Negative [facility] Comment on above: Performed By: #### L [id number], [id number] #### Zinc Plater: PARI FINK ([id number]) [facility] ([facility]) [address] [place] [address] pH (U) 5.5 [pH] Normal 5.0-8.0 [facility] Comment on above: Performed By: #### L [id number], [id number] #### Zinc Plater: PARI FINK ([id number]) [facility] ([facility]) [address] [place] [address] Protein (U) [Mass/Vol] 20 mg/dL Abnormal Negative [facility] Comment on above: Performed By: #### L [id number], [id number] #### Zinc Plater: PARI FINK ([id number]) [facility] ([facility]) [address] [place] [address] [place] RBC (#/HPF) IN URINE SEDIMENT 3-5 Abnormal 0-2 [facility] Comment on above: Performed By: #### L [id number], [id number] #### Zinc Plater: PARI FINK ([id number]) [facility]) [address] [place] [address] Specific gravity (U) [Rel density] 1.026 Normal 1.005-1.030 [facility] Comment on above: Performed By: #### L [id number], [id number] #### Zinc Plater: PARI FINK ([id number]) [facility] ([facility]) [address] [place] [address] SQUAMOUS EPITHELIAL CELLS (#/HPF) IN URINE SEDIMENT 11-25 Abnormal 3-5 [facility] Comment on above: Performed By: #### L [id number], [id number] #### Zinc Plater: PARI FINK ([id number]) [facility]) [address] [place] [address] UROBILINOGEN (MG/DL) IN URINE 3 mg/dL Abnormal Normal (0-1) [facility] Comment on above: Performed By: #### L [id number], [id number] #### Zinc Plater: PARI FINK ([id number]) [facility]) [address] [place] [address] WBC (LEUKOCYTE) (#/HPF) IN URINE SEDIMENT 11-25 Abnormal 0-5 [facility] Comment on above: Performed By: #### L [id number], [id number] #### Zinc Plater: PARI FINK ([id number]) [facility]) [address] [place] [address] COMPREHENSIVE METABOLIC PANE Rod 03-22-2024 Albumin [Mass/Vol] 4.1 g/dL Normal 3.4-4.8 [facility] Comment on above: Performed By: #### L AB17, [id number] #### Zinc Plater: PARI FINK ([id number]) [facility]) [address] [place] [address] ALP [Catalytic activity/Vol] 76 U/L Normal 40-150 [facility] Comment on above: Performed By: #### Rio ROSENTHAL, [id number] #### Zinc Plater: PARI FINK ([id number]) [facility]) [address] [place] [address] ALT [Catalytic activity/Vol] 24 U/L Normal <30 [facility] Comment on above: Performed By: #### Rio ROSENTHAL, [id number] #### Zinc Plater: PARI FINK ([id number]) [facility] ([facility]) [address] [place] [address] Anion gap [Moles/Vol] 6 mmol/L Normal 3-13 [facility] Comment on above: Performed By: #### Rio ROSENTHAL, [id number] #### Zinc Plater: PARI FINK ([id number]) [facility] ([facility]) [address] [place] [address] AST [Catalytic activity/Vol] 32 U/L Normal <34 [facility] Comment on above: Result Comment: TC Potential interference from hemolysis Performed By: #### Rio ROSENTHAL [id number] #### Zinc Plater: PARI FINK ([id number]) [facility]) [address] [place] [address] Bilirubin [Mass/Vol] 0.5 mg/dL Normal <1.2 [facility] Comment on above: Performed By: #### Rio ROSENTHAL [id number] #### Zinc Plater: PARI FINK ([id number]) [facility]) [address] [place] [address] Calcium [Mass/Vol] 9.9 mg/dL Normal 8.8-10.0 [facility] Comment on above: Performed By: #### Rio ROSENTHAL, [id number] #### Zinc Plater: PARI FINK ([id number]) [facility]) [address] [place] [address] Chloride [Moles/Vol] 103 mmol/L Normal 98-107 [facility] Comment on above: Performed By: #### Rio ROSENTHAL [id number] #### Zinc Plater: PARI FINK ([id number]) [facility] [address] [place] [address] CO2 [Moles/Vol] 29 mmol/L Normal 23-31 [facility] Comment on above: Performed By: #### Rio ROSENTHAL, [id number] #### Zinc Plater: PARI FINK ([id number]) [facility] [address] [place] [address] Creatinine [Mass/Vol] 0.79 mg/dL Normal 0.57-1.11 [facility] Comment on above: Performed By: #### Rio ROSENTHAL [id number] #### Zinc Plater: PARI FINK ([id number]) [facility] ([facility]) [address] [place] [address] [place] GLOMERULAR FILTRATION RATE ML/MIN/1.73 SQ M.PREDICTED 84.2 mL/min/1.73m*2 Normal >60.0 [facility] Comment on above: Result Comment: Calc ulation based on the Chronic Kidney Disease Epidemiology Collaboration (CKD-EPI) equation refit without adjustment for race Performed By: #### Rio ROSENTHAL, [id number] #### Zinc Plater: PARI FINK ([id number]) [facility]) [address] [place] [address] Glucose [Mass/Vol] 108 mg/dL Normal 82-115 [facility] Comment on above: Performed By: #### Rio ROSENTHAL, [id number] #### Zinc Plater: PARI FINK ([id number]) [facility] [address] [place] [address] [place] Potassium [Moles/Vol] 4.0 mmol/L Normal 3.5-5.1 [facility] Comment on above: Result Comment: Plas ma potassium values may be up to 0.5 mmol/L lower than serum values. Performed By: #### Rio MARQUEZ17, [id number] #### Zinc Plater: PARI FINK ([id number]) [facility] [address] [place] [address] Protein [Mass/Vol] 7.3 g/dL Normal 6.4-8.3 [facility] Comment on above: Performed By: #### L AB17, [id number] #### Zinc Plater: PARI FINK ([id number]) [facility]) [address] [place] [address] Sodium [Moles/Vol] 138 mmol/L Normal 136-145 [facility] Comment on above: Performed By: #### L AB17, [id number] #### Zinc Plater: PARI FINK ([id number]) [facility]) [address] [place] [address] Urea nitrogen [Mass/Vol] 23 mg/dL Normal 9-23 [facility] Comment on above: Performed By: #### L AB17, [id number] #### Zinc Plater: PARI FINK ([id number]) [facility]) [address] [place] [address] CT ABDOMEN PELVIS WO IV CONT [facility] 03-22-2024 CT ABDOMEN PELVIS WO IV CONTRAST [facility] 1960 [id number] Exam Date/Time: 03/22/2024 16:01 Procedure: CT ABDOMEN PELVIS WO IV CONTRAST Ordering Provider: CUETO MAETINEE Reason For Exam: Flank pain, kidney stone suspected CT ABDOMEN AND PELVIS WITHOUT CONTRAST CLINICAL INDICATION: Abdominal pain, flank pain Technique: Axial CT images were obtained of the abdomen and pelvis without the use of intravenous contrast. Images were reformatted in coronal and sagittal projections. Oral contrast: Not given Dose reduction was employed with automated exposure control. COMPARISON: None. FINDINGS: Evaluation of solid organs is limited by lack of contrast administration. Lung bases: No pleural effusion or focal consolidation. Emphysematous changes are seen in the lungs. Chest wall: Unremarkable. Liver: The liver is normal in size and contour. No focal hepatic lesions identified. Biliary system: The biliary system is not dilated. The gallbladder is normal in appearance. Spleen: The spleen is normal in size and contour. Pancreas: No significant abnormality. Adrenal glands: No significant abnormality. Kidneys/ Ureter: The bilateral kidneys are normal in size and contour. No evidence of hydroureteronephrosis. No evidence of nephrolithiasis. No evidence of focal renal lesions. Bladder: The urinary bladder is decompressed, limiting detailed evaluation. Pelvic organs: No masses or other significant abnormalities seen. Bowel: Esophagus is unremarkable. The stomach is unremarkable. The small bowel is of normal caliber throughout without evidence of wall thickening or obstruction. The appendix is not definitively visualized, however, there is no evidence of periappendiceal fat stranding to suggest appendicitis. Diverticuli are noted throughout the colon. No stenotic lesion or mucosal thickening is noted to suggest diverticulitis. Mesentery/Intraperitone um: No intraperitoneal free fluid or air is seen. Mesentery is normal in appearance. Lymph nodes: No lymphadenopathy Vasculature: Atherosclerotic calcifications are noted throughout the abdominal pelvic vasculature. Otherwise, the abdominal aorta is normal in caliber without evidence of aneurysmal dilatation. The venous vasculature appears grossly unremarkable. Abdominal wall: The abdominal wall soft tissues appear unremarkable. Osseous structures: Diffuse osteopenia is appreciated. No suspicious osseous lesion identified. Mild degenerative changes of the lumbar spine are observed. IMPRESSION: 1. No definite acute abdominopelvic process identified. 2. Pulmonary emphysema. 3. Diverticulosis without evidence of diverticulitis. 4. Other chronic findings as discussed. Report Dictated on Electronically Signed By: William Montanez MD Electronically Signed Date/Time: 03/22/2024 4:11 PM EST Pt coming in CO of ABD or dizziness. Hx of COPD. Normal [facility] ECG 12-LEADon 03-22-2024 ECG 12-LEAD IMPRESSION: Sinus rhythm Anterior infarct, old Minimal ST elevation, lateral leads No previous ECG for comparison Electronically Signed On 03-22-2024 23:31:14 EST by Ang Lewis Normal [facility] ED Nursing Noteon 03-22-2024 ED Nursing Note Pt ambulated with in department approximately 60 feet. Pt did not become hypoxic and was able to maintain a steady gait without increase work of breathing. Pt returned to chair on own power and has no further questions at this time. Normal [facility] ED Provider Noteon ED Provider Note EMERGENCY DEPARTMENT ENCOUNTER Pt Name: Wilner Paz Birthdate 1960 Date of evaluation: 03/22/2024 ED Provider: NELL Mendoza CNP Patient seen independently within my scope of practice with an Emergency Medicine attending available for supervision. CHIEF COMPLAINT Chief Complaint Patient presents with Abdominal Pain Pt coming in CO of ABD or dizziness. Hx of COPD. HISTORY OF PRESENT ILLNESS (Location/Symptom, Timing/Onset, Context/Setting, Quality, Duration, Modifying Factors, Severity) Note limiting factors. I wore appropriate PPE for the entirety of this encounter. HPI Wilner Paz is a 63 y.o. w PmHx COPD (not on oxygen) who presents to the emergency department for lightheadedness, near syncope yesterday while at work around 10 AM. States that she had been having cold symptoms for the last week with congestion, cough, weakness, body aches, generalized ill feeling. States that her work wanted her to come in to be seen today. Denies any loss of consciousness. Cough is unproductive. Also endorsing right wrist pain from a separate incident, states that she was walking and her right thumb got caught on a banister and her wrist was jerked back and since then has been having pain to the right wrist. Also endorsing hematuria that started today, urgency, frequency, burning for the last 4 days. Denies any flank pain. Nursing Notes were reviewed. Limitations to history: None Outside historians: None REVIEW OF SYSTEMS Review of Systems Pertinent positives and negatives as per HPI. PAST MEDICAL HISTORY No past medical history on file. SURGICAL HISTORY No past surgical history on file. CURRENT MEDICATIONS Previous Medications No medications on file ALLERGIES Patient has no known allergies. FAMILY HISTORY No family history on file. SOCIAL HISTORY Social History Socioeconomic History Marital status: Single SCREENINGS PHYSICAL EXAM ED Triage Vitals [03/22/24 1148] Temp Heart Rate Resp BP 36.4 ?C (97.6 ?F) 107 20 127/58 SpO2 Temp Source Heart Rate Source Patient Position (!) 91 % Temporal Monitor -- BP Location FiO2 (%) -- -- Physical Exam GENERAL: The patient appears well nourished, well developed. Good historian. Able to answer questions appropriately. Vital signs as documented. HEENT: Head is normocephalic, atraumatic. No scleral icterus or orbital trauma noted. PERRLA, EOM intact. Mucous membranes moist. Nares patent without copious rhinorrhea. Neck: Supple. No lymphadenopathy. LUNGS: Lungs are diminished, without any respiratory distress. Able to speak full sentences, no accessory muscle use CARDIAC: HRRR, no murmurs, rubs or gallops ABDOMEN: soft, nontender, nondistended. BS + x 4 quadrants, No guarding. No CVA tenderness MS: [place]. Non edematous, with no obvious deformities. SKIN: Good color, with no significant rashes. No pallor. NEURO: No obvious neurological deficits, normal sensation and strength bilaterally. patient able to ambulate. DIAGNOSTIC RESULTS RADIOLOGY (Per Emergency Physician): Interpretation per the Radiologist below, if available at the time of this note: CT abdomen pelvis wo IV contrast Final Result 1. No definite acute abdominopelvic process identified. 2. Pulmonary emphysema. 3. Diverticulosis without evidence of diverticulitis. 4. Other chronic findings as discussed. Report Dictated on Electronically Signed By: William Montanez MD Electronically Signed Date/Time: 03/22/2024 4:11 PM EST XR chest 2 views Final Result No convincing acute process. Report Dictated on Electronically Signed By: Jose Burns MD Electronically Signed Date/Time: 03/22/2024 12:33 PM EST XR wrist 3+ views right Final Result No acute osseous abnormality. Report Dictated on Electronically Signed By: Hilaria Gomez MD Electronically Signed Date/Time: 03/22/2024 12:34 PM EST LABS: Labs Reviewed CBC WITH AUTO DIFFERENTIAL - Abnormal Result Value Auto WBC 9.5 RBC 4.70 Hemoglobin 14.7 Hematocrit 44.8 MCV 95.3 MCH 31.3 MCHC 32.8 RDW 13.8 Platelets 185 MPV 11.4 nRBC 0.0 Neutrophils Relative 61.8 Lymphocytes Relative 24.0 Monocytes Relative 11.8 Eosinophils Relative 1.4 Basophils Relative 0.6 Immature Grans % 0.4 Neutrophils Absolute 5.9 Lymphocytes Absolute 2.3 Monocytes Absolute 1.1 (*) Eosinophils Absolute 0.1 Basophils Absolute 0.1 Immature Grans Absolute 0.0 COMPLETE URINALYSIS - Abnormal Color, Urine Red (*) Clarity, Urine Cloudy (*) pH, Urine 5.5 Leukocytes, Urine 250 (*) Nitrite, Urine Positive (*) Protein, Urine 20 (*) Glucose, Urine Normal Bilirubin, Urine Negative Ketones, Urine Negative Urobilinogen, Urine 3 (*) Blood, Urine Negative RBC, Urine 3-5 (*) WBC, Urine 11-25 (*) Squamous Epithelial, Urine 11-25 (*) Bacteria, Urine Loaded ( (more content not included)... Normal [facility] HIGH SENSITIVITY TROPONIN, S ERIAL BASELINEon 03-22-2024 TROPONIN HIGH SENSITIVITY BASELINE <3 Normal <=14 [facility] Comment on above: Performed By: #### L [id number], [id number] #### Zinc Plater: PARI FINK ([id number]) [facility]) [address] [place] [address] HIGH SENSITIVITY TROPONIN, S ERIAL, SECOND TESTon 03-22-2024 TROPONIN HS, SERIAL REFLEX, TEST TWO 3 ng/L Normal <=14 [facility] Comment on above: Performed By: #### L [id number] #### Zinc Plater: PARI FINK ([id number]) [facility] ([facility]) [address] [place] [address] SARS-COV-2, FLU A/B, AND RSV COMBOon 03-22-2024 SARS-CoV-2 (COVID-19) RNA GIOVANNY+probe Ql (Unsp spec) SARS-COV-2 Reference Not Detected Not Detected RESPIRATORY SYNCYTIAL VIRUS Reference Not Detected Not Detected INFLUENZA A (CEPHEID) Reference Not Detected Not Detected INFLUENZA B (CEPHEID) Reference Not Detected Not Detected ORDER COMMENTS: Methodology: real-time, RT-PCR Normal [facility] Comment on above: Performed By: #### L [id number] #### Zinc Plater: PARI FINK ([id number]) [facility]) [address] [place] [address] URINE CULTUREon 03-22-2024 Bacteria identified Cx Nom (U) URINE CULTURE (A) Reference ESCHERICHIA COLI >100,000 CFU/mL Escherichia coli (A) Organism: ESCHERICHIA COLI Antibiotic LORI Interpretation Status Amoxicillin / Clavulanate <=2 ug/ml S F Ampicillin <=2 ug/ml S F Ampicillin / Sulbactam <=2 ug/ml S F Aztreonam <=1 ug/ml S F Cefazolin <=4 ug/ml S F Cefepime <=1 ug/ml S F Ceftriaxone <=1 ug/ml S F Ciprofloxacin <=0.25 ug/ml S F Gentamicin <=1 ug/ml S F Meropenem <=0.25 ug/ml S F Nitrofurantoin <=16 ug/ml S F Piperacillin / Tazobactam <=4 ug/ml S F Trimethoprim / Sulfamethoxazole <=20 ug/ml S F [ S = SUSCEPTIBLE R = RESISTANT I = INTERMEDIATE S-DD = Susceptible-dose dependent NS = Non-susceptible NO = No Interpretation ] Normal [facility] Comment on above: Performed By: #### L [id number], [id number] #### Zinc Plater: PARI FINK ([id number]) [facility]) [address] [place] [address] CT Brain wo contraston 05-17 CT Brain wo contrast CLINICAL INFORMATION: Headaches. Blurred vision. 3 mm axial cuts through the head are obtained without IV contrast. Dose reduction was employed with automated exposure control. There are no comparison studies. FINDINGS: The ventricles are within normal limits in respect to their size and configuration. There is no evidence of mass or mass-effect. There are no abnormal intra- or extra-axial fluid collections. No hemorrhage is identified. There is no CT evidence of an acute infarct. Bone windows demonstrate no evidence of fracture and the visualized paranasal sinuses and mastoid air cells are clear. IMPRESSION: 1. No evidence of an acute intracranial process. Report Dictated on Authenticated by: Louie Farrell On: 05/18/2023 12:12 Read by: LOUIE FARRELL MD, MD Date: 05/18/2023 12:12 Normal [facility] BASIC METABOLIC PANELon 06-0 Anion gap [Moles/Vol] 11 mmol/L Normal 10 - 20 [facility] Comment on above: Performed By: #### B MP #### [place] [address] Calcium [Mass/Vol] 9.3 mg/dL Normal 8.6 - 10.3 [facility] Comment on above: Performed By: #### B MP #### [address] [address] Chloride [Moles/Vol] 103 mmol/L Normal 98 - 107 [facility] Comment on above: Performed By: #### B MP #### [address] [address] Creatinine [Mass/Vol] 0.61 mg/dL Normal 0.50 - 1.05 [facility] Comment on above: Performed By: #### B MP #### [address] [address] eGFR FEMALE >90 Normal >90 [facility] Comment on above: Result Comment: CALC ULATIONS OF ESTIMATED GFR ARE PERFORMED USING THE 2020 CKD-EPI STUDY REFIT EQUATION WITHOUT THE RACE VARIABLE FOR THE IDMS-TRACEABLE CREATININE METHODS. https://jasn.asnjournals.org/content//ASN.88948016 88 Performed By: #### B MP #### [address] [address] Glucose [Mass/Vol] 136 mg/dL High 74 - 99 [facility] Comment on above: Performed By: #### B MP #### [address] [address] HCO3 (Bld) [Moles/Vol] 26 mmol/L Normal 21 - 32 [facility] Comment on above: Performed By: #### B MP #### [address] [address] Potassium [Moles/Vol] 4.0 mmol/L Normal 3.5 - 5.3 [facility] Comment on above: Performed By: #### B MP #### [address] [address] Sodium [Moles/Vol] 136 mmol/L Normal 136 - 145 [facility] Comment on above: Performed By: #### B MP #### [address] [address] Urea nitrogen [Mass/Vol] 16 mg/dL Normal 6 - 23 [facility] Comment on above: Performed By: #### B MP #### [place] [id number] BNPon 08-02-2022 Natriuretic peptide B (Bld) [Mass/Vol] 29 pg/mL Normal 0 - 99 [facility] Comment on above: Result Comment: . <1 00 pg/mL - Heart failure unlikely 100-299 pg/mL - Intermediate probability of acute heart . failure exacerbation. Correlate with clinical . context and patient history. >=300 pg/mL - Heart Failure likely. Correlate with clinical . context and patient history. BNP testing is performed using different testing methodology at [facility] than at other [facility]. Direct result comparisons should only be made within the same method. Performed By: #### B NP2 #### [place] [address] CBC AND DIFFERENTIALon 08-02 % AUTOMATED IMMATURE GRAN 0.5 % Normal 0.0 - 0.9 [facility] Comment on above: Result Comment: Suzanne ture Granulocyte Count (IG) includes promyelocytes, myelocytes and metamyelocytes but does not include bands. Percent differential counts (%) should be interpreted in the context of the absolute cell counts (cells/L). Performed By: #### C BCDF #### [place] [id number] Basophils (Bld) [#/Vol] 0.05 10*3/uL Normal 0.00 - 0.10 [facility] Comment on above: Performed By: #### C BCDF #### [place] [id number] Basophils/100 WBC (Bld) 0.3 % Normal 0.0 - 2.0 [facility] Comment on above: Performed By: #### C BCDF #### [address] [address] Eosinophils (Bld) [#/Vol] 0.12 10*3/uL Normal 0.00 - 0.70 [facility] Comment on above: Performed By: #### C BCDF #### [place] [id number] Eosinophils/100 WBC (Bld) 0.7 % Normal 0.0 - 6.0 [facility] Comment on above: Performed By: #### C BCDF #### [address] [address] Erythrocyte distribution width (RBC) [Ratio] 13.4 % Normal 11.5 - 14.5 [facility] Comment on above: Performed By: #### C BCDF #### [address] [address] Hematocrit (Bld) [Volume fraction] 44.7 % Normal 36.0 - 46.0 [facility] Comment on above: Performed By: #### C BCDF #### [address] [address] Hemoglobin (Bld) [Mass/Vol] 14.5 g/dL Normal 12.0 - 16.0 [facility] Comment on above: Performed By: #### C BCDF #### [place] [id number] Lymphocytes (Bld) [#/Vol] 2.67 10*3/uL Normal 1.20 - 4.80 [facility] Comment on above: Performed By: #### C BCDF #### [address] [address] Lymphocytes/100 WBC (Bld) 15.1 % Normal 13.0 - 44.0 [facility] Comment on above: Performed By: #### C BCDF #### [address] [address] MCHC (RBC) [Mass/Vol] 32.4 g/dL Normal 32.0 - 36.0 [facility] Comment on above: Performed By: #### C BCDF #### [address] [address] MCV (RBC) [Entitic vol] 93 fL Normal 80 - 100 [facility] Comment on above: Performed By: #### C BCDF #### [address] [address] Monocytes (Bld) [#/Vol] 2.06 10*3/uL High 0.10 - 1.00 [facility] Comment on above: Performed By: #### C BCDF #### [address] [address] Monocytes/100 WBC (Bld) 11.6 % Normal 2.0 - 10.0 [facility] Comment on above: Performed By: #### C BCDF #### [address] [address] Neutrophils (Bld) [#/Vol] 12.75 10*3/uL High 1.20 - 7.70 [facility] Comment on above: Result Comment: Perc ent differential counts (%) should be interpreted in the context of the absolute cell counts (cells/L). Performed By: #### C BCDF #### [address] [address] Neutrophils/100 WBC (Bld) 71.8 % Normal 40.0 - 80.0 [facility] Comment on above: Performed By: #### C BCDF #### [address] [address] Platelets (Bld) [#/Vol] 240 10*3/uL Normal 150 - 450 [facility] Comment on above: Performed By: #### C BCDF #### [address] [address] RBC 4.83 x10E12/L Normal 4.00 - 5.20 [facility] Comment on above: Performed By: #### C BCDF #### [address] [address] WBC (Bld) [#/Vol] 17.7 10*3/uL High 4.4 - 11.3 [facility] Comment on above: Performed By: #### C BCDF #### [address] [address] CHEST 1 VIEWon 08-02-2022 CHEST 1 VIEW Patient Name: WILNER PAZ STUDY: CHEST 1 VIEW; 08/02/2022 6:03 am INDICATION: sob . COMPARISON: Chest radiograph dated 01/16/2017. ACCESSION NUMBER(S): [id number] ORDERING CLINICIAN: KERI KIM FINDINGS: CARDIOMEDIASTINAL SILHOUETTE: Cardiomediastinal silhouette is normal in size and configuration. There are aortic arch atherosclerotic calcifications. LUNGS/PLEURA: Lungs are hyperinflated and hyperlucent consistent with emphysema. There are no consolidations.There are no pleural effusions. There is no demonstrated pneumothorax. BONES: No evidence of acute osseous abnormality. IMPRESSION: 1. No evidence of acute cardiopulmonary process. Emphysematous lung changes. Electronically signed by: TORIBIO BOSS, DO Normal [facility] D-DIMER, NON VTEon 3 D-DIMER, NON VTE 254 ng/mL FEU Normal = 500 [facility] Comment on above: Result Comment: THE D-DIMER ASSAY IS REPORTED IN NG/ML FIBRINOGEN EQUIVALENT UNITS (FEU). THE RESULTS OF THIS ASSAY SHOULD NOT BE USED FOR THE EXCLUSION OF DEEP VEIN THROMBOSIS AND/OR PULMONARY EMBOLISM. Performed By: #### D MARGARITO #### [place] [address] Provider Note - ED v3on 06-0 Provider Note - ED v3 Provider Note: Chart Review ED NOTES ED NOTES: HPI: The patient is a 62-year-old female smoker presents with a chief complaint of chest pain started about 3 hours ago. States she was up putting beads on sandals. She does not know if she has COPD or not. She is smokes about a pack a day. No fevers or chills. Unable to describe what the pain feels like. May be heavy. No radiating symptoms to the extremities neck or jaw. Feels a little short of breath may be ROS: All systems are negative other than as noted in HPI. Physical Exam Constitutional: Well developed, No acute distress EYES: Sclera non-icteric. Conjunctiva not injected. No discharge. HENT: Moist mucous membranes. Posterior oropharynx non-erythematous, no tonsillar exudates. TMs clear bilaterally, canals normal. No cervical LAD. Neck supple without meningismus. CV: Regular rate and rhythm, Resp: No respiratory distress. Lungs clear bilaterally. GI: Normoactive bowel sounds. Soft, non tender, no masses or organomegaly appreciated. :. MSK: No gross deformities appreciated. Moves all extremities Neuro: Alert, age appropriate. Normal muscle tone. Moving all extremities. Skin: No rashes. HISTORY OF PRESENTING ILLNESS WILNER is a 62 year old Female and was seen by me at 02-Aug-2022 05:32 for a chief complaint of chest pain (Patient c/o midsternal chest pain spreading across her chest, described as pressure and heavy, started about 3 hours ago. Reports some mild SOB, mild nausea, no vomiting.)(1). Triage Information: Most recent Vital Sign Value Date Heart Rate (beats/min): 99 08-02-2022 05:34 Respirations (breaths/min): 18 08-02-2022 05:34 SpO2 (%): 92 08-02-2022 05:34 BP Systolic (mm Hg): 138 08-02-2022 05:34 BP Diastolic (mm Hg): 82 08-02-2022 05:34 PAST MEDICAL HISTORY ALLERGIES/INTOLERANCES: No Known Allergies HEALTH HISTORY: No documented data. OUTPATIENT MEDICATIONS: Home Medications Review Status for Reconciliation: Incomplete Med Status: Incomplete Medication History No documented data. SIGNIFICANT EVENTS: No documented data. CRITICAL CARE RESULTS: Recent Lab Results: I have reviewed these laboratory results: Complete Blood Count + Differential 02-Aug-2022 05:46:00 ResultValue White Blood Cell Count 17.7 H Red Blood Cell Count 4.83 HGB 14.5 HCT 44.7 MCV 93 MCHC 32.4 PLT 240 RDW-CV 13.4 Neutrophil % 71.8 Immature Granulocytes % 0.5 Lymphocyte % 15.1 Monocyte % 11.6 Eosinophil % 0.7 Basophil % 0.3 Neutrophil Count 12.75 H Lymphocyte Count 2.67 Monocyte Count 2.06 H Eosinophil Count 0.12 Basophil Count 0.05 Basic Metabolic Panel 02-Aug-2022 05:46:00 ResultValue Glucose, Serum 136 H NA 136 K 4.0 CL 103 Bicarbonate, Serum 26 Anion Gap, Serum 11 BUN 16 CREAT 0.61 GFR Female >90 Calcium, Serum 9.3 Troponin I, High Sensitivity 02-Aug-2022 05:46:00 ResultValue Troponin I, High Sensitivity 5 Radiology Results: Impression: 1. No evidence of acute cardiopulmonary process. Emphysematous lung changes. Xray Chest 1 View [Aug 02 2022 6:10AM] VITAL SIGNS: T PRBP SpO2O2(LPM) %FiO2 Method 02-Aug-2022 05:34:[id number] 92 room air, no respiratory support MDM MDM/ED COURSE: Patient presents with chest pain. States it hurts to breathe. May be some mild shortness of breath. Received 2 breathing treatments with no significant relief per her report. She is having some persistent discomfort. Will treat with 50 mg IVP Toradol and she has received 125 mg IVP Solu-Medrol. Chest x-ray was unremarkable for acute findings other than emphysematous changes. I am going to go ahead and scan her chest due to her discomfort and elevated white blood cell count of 17.7. Initial troponin is negative. Care will be transitioned to the daytime physician. PROGRESS NOTE EKG Post-Procedure Diagnosis: EKG INTERPRETATION: Impression: Sinus rhythm rate of 98, right axis deviation, no ST elevation or depression, no ectopy. DISPOSITION Diagnosis/Annotation: ED Dx Name:Chest pain Code:R07.9 Signed Out to Incoming Provider Disposition: HANDOFF Signed out to Incoming Provider: Iraj Nieto CONSULT CRITICAL CARE TIME Is this a critically ill patient: no Electronic Signatures for Addendum Section: Iraj Nieto (DO) (Signed Addendum 02-Aug-2022 08:42) I spoke the patient at length. Patient feels that the symptoms which started last night around 11 PM are related to gas or anxiety. I went over the case with cardiology Dr. Wang and he is comfortable with the patient being discharged if she has no previous cardiac history. The patient does not. Patient will be referred to a family medical doctor and can follow-up with Dr. Wang. I have strongly stressed that she decrease cigarette smoking and if she has any reoccurrence of symptoms return to ED. Pat (more content not included)... Normal [facility] Risk Screen - Adult Emergenc yon 08-02-2022 Risk Screen - Adult Emergency Preferred Language: Preferred Language: Preferred Language for Discussing Health Care (patient/designee)Azra pierce Patient Preferred Pharmacy: Patient Preferred Pharmacy Statement: I have reviewed and updated the patient's preferred pharmacy selection for today's visit. Advanced Directives: Advance Directive/DNRno Advance Directive Information Givenpatient/family declined Family Violence Adult: Abuse Screen: Are you or have you been threatened or abused physically, emotionally, or sexually by anyoneno Learning Assessment (Patient): Learning Assessment (Patient): Patient is Able to be Assessed for Learningyes Factors Influencing Readiness to Learnacuteness of illness Factors that Impact Ability to Learnacuteness of illness Devices/Methods Used to Communicatenone Learning Preferencesaudio Cultural Considerationsnone Developmental Considerationsnone Gnosticism Considerationsnone Learning Assessment (Other Learner): Learning Assessment (Other Learner): Other learner availableno Pressure Injury/TB/Substance: Pressure Injury: Pressure Injury Present on Admissionno Do you have a coughno Smoking Statusmoderate user (uses 11-30 cig/day, OR 0.5-1.5 ppd, OR 2-3 cans/pouches loose leaf tobacco per week, OR 0.5-1.5 vape pods per day) Tobacco Cessation Education (provide if tobacco use within the last 12 mos) patient declined Alcohol Usedenies Drug Usedenies Drug 2 Usedenies Admission Risk Screen: Significant IndicatorsComplete CAGE: CAGE: Is this an injured patient at a Tra[place] Center [place] [place]/[place]/[facility]/[place]): no Electronic Signatures: Esme Thakkar (DILSHAD) (Signed 02-Aug-2022 06:03) Authored: Preferred Language, Patient Preferred Pharmacy, Advanced Directives, Family Violence Adult, Learning Assessment (Patient), Learning Assessment (Other Learner), Pressure Injury/TB/Substance, Pressure Injury, CAGE Last Updated: 02-Aug-2022 06:03 by Esme Thakkar (DILSHAD) Normal [facility] TROPONIN I, HIGH SENSITIVITY on 08-02-2022 TROPONIN I, HIGH SENSITIVITY 5 ng/L Normal 0 - 13 [facility] Comment on above: Result Comment: . Less than 99th percentile of normal range cutoff- Female and children under 18 years old <14 ng/L; Male <21 ng/L: Negative Repeat testing should be performed if clinically indicated. . Female and children under 18 years old 14-50 ng/L; Male 21-50 ng/L: Consistent with possible cardiac damage and possible increased clinical risk. Serial measurements may help to assess extent of myocardial damage. . >50 ng/L: Consistent with cardiac damage, increased clinical risk and myocardial infarction. Serial measurements may help assess extent of myocardial damage. . NOTE: Children less than 1 year old may have higher baseline troponin levels and results should be interpreted in conjunction with the overall clinical context. . NOTE: Troponin I testing is performed using a different testing methodology at [facility] than at other [facility]. Direct result comparisons should only be made within the same method. Performed By: #### T [facility] #### [address] [address] TROPONIN I, HIGH SENSITIVITY 5 ng/L Normal 0 - 13 [facility] Comment on above: Result Comment: . Less than 99th percentile of normal range cutoff- Female and children under 18 years old <14 ng/L; Male <21 ng/L: Negative Repeat testing should be performed if clinically indicated. . Female and children under 18 years old 14-50 ng/L; Male 21-50 ng/L: Consistent with possible cardiac damage and possible increased clinical risk. Serial measurements may help to assess extent of myocardial damage. . >50 ng/L: Consistent with cardiac damage, increased clinical risk and myocardial infarction. Serial measurements may help assess extent of myocardial damage. . NOTE: Children less than 1 year old may have higher baseline troponin levels and results should be interpreted in conjunction with the overall clinical context. . NOTE: Troponin I testing is performed using a different testing methodology at [facility] than at other [facility]. Direct result comparisons should only be made within the same method. Performed By: #### T [facility] #### [address] [address] Triage - EDon 08-02-2022 Triage - ED Chart Review: ARRIVAL INFORMATION Mode of Arrival: private vehicle CHIEF COMPLAINT WILNER PAZ is a Female patient with a chief complaint of chest pain (Patient c/o midsternal chest pain spreading across her chest, described as pressure and heavy, started about 3 hours ago. Reports some mild SOB, mild nausea, no vomiting.). Onset of the Complaint: 02-Aug-2022 02:30 Triage Date/Time: 02-Aug-2022 05:34 MARGARITO: 2 Pain Rating (0-10): 10 = Severe Pain location: chest Vital Signs: Blood Pressure: 138/82 Mean: Heart Rate: 99 Respiratory Rate: 18 Pulse Oximetry: 92% on room air, no respiratory support. Height: 5 feet 2.00 inches. 157.4 CM Weight: 135.5 pounds. Calculated 61.5 kg. (stated) Calculated BMI (kg/m2): 24.823 Calculated BSA (m2) 1.64 Dori Coma Scale: Best Eye Response: (E4) spontaneous Best Motor Response: (M6) obeys commands Best Verbal Response: (V5) oriented Dori Score: 15 Cough lasting greater than 3 weeks: no Allergies: no Patient has homicidal thoughts: no Risk Screens Suicide Risk Screen In the Past Month: Have you wished you were or wished you could go to sleep and not wake up no In the Past Month: Have you had any actual thoughts of killing yourself no In Your Lifetime: Have you ever done anything, started to do anything, or prepared to do anything to end your life no Raman Fall Scale Screening Has the patient fallen before (or is the patient in the ED as a result of a fall) has not had a fall Does the patient have an impaired gait does not have impaired gait Is the patient cognitively impaired not cognitively impaired Interventions: Raman Fall Interventions: LOW INTERVENTIONS: *patient oriented to surroundings and call system, * patient/family falls education completed and documented, *patients fall status communicated during bedside handoff, *whiteboard updated, *mode of toileting discussed with patient, *bed in low position with brakes locked, *call light in reach, * non-skid footwear TRAVEL HISTORY Travel History Coronavirus Screening: no exposure or symptoms Travel Exposure History: NO travel to International locations in the past 30 days PAIN Pain Scale Used: JOCY Pain Rating (0-10): 10 = Severe Past Medical History: Past Medical History Reviewedyes Electronic Signatures: Esme Thakkar (DILSHAD) (Signed 02-Aug-2022 05:43) Entered: Risk Screens, Pain, Travel History, Chart Review, Scores, Past Medical History Authored: Quick Triage, Risk Screens, Pain, Travel History, Chart Review, Scores, Past Medical History Last Updated: 02-Aug-2022 05:43 by Esme Thakkar) [facility] 12-15-2018 No acute osseous inj ury is visualized at the right forearm and at the right wrist. If there is persistent clinical concern for underlying acute osseous abnormality, recommend repeat exam in 7-10 days. SH/dnb Workstation ID: [id number] [facility] EXAMINATION: XR FORE ARM RIGHT 2 VIEWS; XR WRIST RIGHT 3+ VIEWS (STANDARD) HISTORY: Pain COMPARISON: None. FINDINGS: RIGHT FOREARM: No acute fracture. The visualized alignment appears unremarkable. No large right elbow joint effusion. RIGHT WRIST: No acute fracture or dislocation. Scattered degenerative disease noted. [facility] Interface, Rad In Fu ji Speechq - 12/15/2018 5:40 PM EDT EXAMINATION: XR FOREARM RIGHT 2 VIEWS; XR WRIST RIGHT 3+ VIEWS (STANDARD) HISTORY: Pain COMPARISON: None. FINDINGS: RIGHT FOREARM: No acute fracture. The visualized alignment appears unremarkable. No large right elbow joint effusion. RIGHT WRIST: No acute fracture or dislocation. Scattered degenerative disease noted. IMPRESSION: No acute osseous injury is visualized at the right forearm and at the right wrist. If there is persistent clinical concern for underlying acute osseous abnormality, recommend repeat exam in 7-10 days. [employer] Workstation ID: [id number] [facility] XR FOREARM RIGHT 2 VIEWSon 1 XR FOREARM RIGHT 2 VIEWS EXAMINATION: XR FOREARM RIGHT 2 VIEWS; XR WRIST RIGHT 3+ VIEWS (STANDARD) HISTORY: Pain COMPARISON: None. FINDINGS: RIGHT FOREARM: No acute fracture. The visualized alignment appears unremarkable. No large right elbow joint effusion. RIGHT WRIST: No acute fracture or dislocation. Scattered degenerative disease noted. IMPRESSION: No acute osseous injury is visualized at the right forearm and at the right wrist. If there is persistent clinical concern for underlying acute osseous abnormality, recommend repeat exam in 7-10 days. [employer] Workstation ID: [id number] Dictated by: DANTE REMY on Sat Dec 15, 2018 4:25:24 PM EDT Transcribed by: ALEX BRYANT on Sat Dec 15, 2018 4:25:24 PM EDT Finalized by: DANTE REMY on Sat Dec 15, 2018 5:38:11 PM EDT Normal [facility] Comment on above: Order Comment: Injur y/Trauma or Illness?:Injury/Trauma How long have you had these symptoms (acute/chronic)?:Acute Reason for exam?:right wrist pain History of cancer?:un Surgeries, chemotherapy, or radiation?:un Type of Exam?:Initial Mechanism of injury?:felt pop while lifting object XR WRIST RIGHT 3+ VIEWS (STA NDARD)on 12-15-2018 XR WRIST RIGHT 3+ VIEWS (STANDARD) EXAMINATION: XR FOREARM RIGHT 2 VIEWS; XR WRIST RIGHT 3+ VIEWS (STANDARD) HISTORY: Pain COMPARISON: None. FINDINGS: RIGHT FOREARM: No acute fracture. The visualized alignment appears unremarkable. No large right elbow joint effusion. RIGHT WRIST: No acute fracture or dislocation. Scattered degenerative disease noted. IMPRESSION: No acute osseous injury is visualized at the right forearm and at the right wrist. If there is persistent clinical concern for underlying acute osseous abnormality, recommend repeat exam in 7-10 days. [employer] Workstation ID: [id number] Dictated by: DANTE REMY on Sat Dec 15, 2018 4:25:24 PM EDT Transcribed by: ALEX BRYANT on Sat Dec 15, 2018 4:25:24 PM EDT Finalized by: DANTE REMY on Sat Dec 15, 2018 5:38:11 PM EDT [facility] Comment on above: Order Comment: Injur y/Trauma or Illness?:Injury/Trauma How long have you had these symptoms (acute/chronic)?:Acute Reason for exam?:right wrist pain History of cancer?:un Surgeries, chemotherapy, or radiation?:un Type of Exam?:Initial Mechanism of injury?:felt pop while lifting object Vital Signs Date Time Vital Sign Value Performing Clinician Facility 08-02-2022 10:54-0400 Diastolic blood pressure 87 mm[Hg] No Pcp Required [facility] 08-02-2022 10:54-0400 Heart rate 91 /min No Pcp Required [facility] 08-02-2022 10:54-0400 Respiratory rate 18 /min No Pcp Required [facility] 08-02-2022 10:54-0400 SaO2% (BldA) [Mass fraction] 95 % No Pcp Required [facility] 08-02-2022 10:54-0400 Systolic blood pressure 167 mm[Hg] No Pcp Required [facility] 08-02-2022 07:34-0400 Body height 157.4 cm No Pcp Required [facility] 08-02-2022 07:34-0400 Body temperature 98.06 [degF] No Pcp Required [facility] 08-02-2022 07:34-0400 Body weight 61.5 kg No Pcp Required [facility] 05-31-2021 07:13-0400 Body height 157.48 cm [facility] Work Phone: 05-31-2021 07:13-0400 Body mass index (BMI) [Ratio] 26.5 kg/m2 [facility] Work Phone: 05-31-2021 07:13-0400 Body temperature 98.4 [degF] [facility] Work Phone: 05-31-2021 07:13-0400 Body weight 65.77 kg [facility] Work Phone: 05-31-2021 07:13-0400 Diastolic blood pressure 75 mm[Hg] [facility] Work Phone: 05-31-2021 07:13-0400 Heart rate 111 /min [facility] Work Phone: 05-31-2021 07:13-0400 Respiratory rate 20 /min [facility] Work Phone: 05-31-2021 07:13-0400 SaO2% (BldA) [Mass fraction] 95 % [facility] Work Phone: 05-31-2021 07:13-0400 Systolic blood pressure 147 mm[Hg] [facility] Work Phone: 12-15-2018 15:58-0400 BMI (Body Mass Index) 21.95 kg/m2 Physician No [facility] 12-15-2018 15:58-0400 Body Temperature 98.29 [degF] Physician [facility] 12-15-2018 15:58-0400 Body weight 54.43 kg Physician No [facility] 12-15-2018 15:58-0400 BP Diastolic 74 mm[Hg] Physician No [facility] 12-15-2018 15:58-0400 BP Systolic 168 mm[Hg] Physician No [facility] 12-15-2018 15:58-0400 Height 157.5 cm Physician No [facility] 12-15-2018 15:58-0400 Pulse (Heart Rate) 104 /min Physician No [facility] 12-15-2018 15:58-0400 Pulse Oximetry 93 % Physician No [facility] 12-15-2018 15:58-0400 Respiratory Rate 18 /min Physician No [facility] Encounters Encounter Date Encounter Type Care Provider Facility Start: 05-01-2024 ambulatory Hank Morales Facility:[facility] Start: 04-29-2024 End: 05-01-2024 ambulatory Yamilet Matthews Facility:[facility] Start: 04-29-2024 End: 04-29-2024 Emergency department patient visit No Primary Care Physician Facility:[facility] Start: 03-22-2024 End: 03-22-2024 Emergency department patient visit [facility] Start: 05-18-2023 End: 05-18-2023 Emergency department patient visit JUAQUIN REZA DO~[id number] [facility] Start: 08-02-2022 End: 08-02-2022 Emergency department patient visit Keri Kim [facility] Emergency 11 Start: 05-31-2021 End: 05-31-2021 Emergency department patient visit [facility] Start: 12-15-2018 End: 12-15-2018 Emergency department patient visit PHYSICIAN NO [facility] Start: 12-15-2018 End: 12-15-2018 Emergency department patient visit Physician No [facility] Emergency Department Comment on above: Sprain of right wris t, initial encounter (Primary Dx) Start: 05-27-2018 End: 05-27-2018 Emergency department patient visit Alec Coughlin Facility:[facility] Start: 05-27-2018 Patient encounter procedure Facility:[id number] Procedures Date Procedure Procedure Detail Performing Clinician Start: 08-02-2022 End: 08-02-2022 EKG impression Keri Kim Start: 05-31-2021 Plain X-ray of shoulder Start: 05-31-2021 X-ray of cervical spine Start: 12-15-2018 Radex wrist complete minimum 3 views Vijay Bosch Work Phone: Start: 12-15-2018 Radex forearm 2 views Celeste Bosch Work Phone: Plan of Treatment Date Care Activity Detail Author Start: 10-28-2018 Influenza vaccination given SEQUENTIAL INFLUENZA VACCINE (#1) [facility] Start: 2010 Administration of herpes zoster vaccine Zoster Vaccines (1 of 2) [facility] Start: 07-08-1963 History and physical examination, annual for health maintenance Wellness Visit [facility] Start: 1960 Hepatitis C antibody, confirmatory test HEPATITIS C SCREENING [facility] Start: 1960 Screening for malignant neoplasm of cervix PAP SMEAR [facility] Start: 1960 Screening for malignant neoplasm of colon Colorectal Cancer Screening: Colonoscopy [facility] Start: 1960 Screening mammography Mammogram [facility] Start: 1960 Tetanus vaccination TETANUS EVERY 10 YR [facility] Patient Education ED Radiculopat hy, Cervical [facility] Work Phone: Patient referral [facility] Work Phone: Payers Date Payer Category Payer Unknown [id number] 2018 Medicaid [id number] 2018 Medicaid [place] xxxxxxxxxxxx 2018-Present [id number] 2018 Self-pay 1960 Unknown [id number] 1960 Unknown [id number] 1960 Unknown [id number] [id number] 1960 Unknown [id number] [id number] 9 1960 Unknown [id number] 1959 Self-pay [id number] Unknown See Registration System\SELF PAY Unknown [id number] Unknown [id number] Unknown [id number] Unknown [id number] [id number] Unknown [id number] [id number] Unknown [id number] [id number] Unknown [id number] Social History Date Type Detail Facility Start: 12-15-2018 Tobacco smoking stat [facility] Current every day smoker [facility] Start: 12-15-2018 Alcohol intake Ex-drinker (finding) [facility] Sex Assigned At Not on file [facility] Start: 05-31-2021 Tobacco smoking stat [facility] Unknown if ever smoked [facility] Work Phone: Start: 1960 Sex Assigned At Female W [facility] Work Phone: Discharge summary note 05-01-2024 Note Date & Type Note Facility 05-01-2024 Note [facility] Medical Records Department [address] [place] [id number] Discharge Summary 05/01/24 1408 MR#: [id number] Acct: [id number] Name: WILNER PAZ Rep #: [id number] : 1960 63 From: Yamilet Matthews MD PCP: Care Physician,No Primary Status:DIS ANA Location: [place] [id number] Providers Date of Admission: 04/29/24 Date of Discharge: 05/01/24 Primary Care Physician: No Primary Care Phys Reason For Visit: CHEST PAIN Diagnosis Discharge Diagnosis (1) Chest pain, unspecified: Status: Acute Code(s): R07.9 - Chest pain, unspecified Plan #Chest pain * chest pain did not recur during admission. * troponins are negative * EKG showed no acute ST changes. * stress test done today is negative * Stable. SL nitroglycerin prn * #Hypoxia * patient required 2L of oxygen. * unclear why she is requiring oxygen as she was not on oxygen on admission. I suspect she does have underlying COPD based on CXR findings on admission. * CXR showed hyperinflation and emphysematous changes with decreased bronchovascular markings in both upper lobes and right lung base suggestive of emphysematous changes with bullous formation and no definite pneumothorax. * I suspect she has underlying COPD also * give a dose of IV lasix 40mg x 1 this evening * check BNP. Get 2D echo tomorrow * titrate oxygen to maintain sats >90% * breathing treatment with bronchodilators. * #Subclinical hypothyroidism * TSH was elevated at 5.2, but free T4 was WNL. * will therefore hold off on starting synthroid * to follow up with PCP for repeat thyroid function tests on discharge. * DVT prophylaxis: lovenox Medications at Discharge Home Medications albuterol sulfate 90 mcg/actuation aerosol inhaler 1 inh inhalation Q6H PRN shortness of breath or wheezing #8.5 grams 05/01/24 Hospital Course Operations None Procedures 2-D Echocardiogram and Nuclear stress test Summary of Care Provided Minutes Spent on Discharge: 45 Hospital Course: Patient is a 63-year-old female with a past medical history as outlined was admitted through the ED on 04/29/2024 with complaint of chest pain. She had been seen earlier in the day of admission in the ED but left AMA and subsequently came back. She says she has started having chest pain on the day of admission. It was nonradiating and she had no assisted shortness of breath. She had no other complaints. She did have a long history of smoking. Troponins were negative. She was admitted to be managed for chest pain to rule out ACS. She had stress test which was negative for any evidence of ischemia. Patient however had some transient hypoxia during admission. Chest x-ray did show emphysematous changes concerning for COPD and in light of her history of smoking was likely the patient had COPD. She had 2D echo which showed EF of 55% with no evidence of diastolic dysfunction and negative bubble study. She was weaned off the oxygen and felt much better. Of note during admission her TSH was checked and was elevated at 5.2 but free T4 was normal which indicated subclinical hypothyroidism. She was counseled to follow-up with her PCP for repeat thyroid function test within a month. Of note patient did not have any PCP so she was referred to [facility] to establish care. She was discharged on 05/01/2024 with an albuterol inhaler to use as needed for shortness of breath. She was strongly counseled to quit smoking. Patient seen and examined prior to discharge. She felt much better and had no complaints. She had an uneventful night. Review of systems otherwise negative labs and vitals reviewed. Home Medication reviewed and reconciled. Physical Exam Const alert, oriented x3, no apparent distress and well nourished General Appearance: cooperative, comfortable and well developed Orientation / Consciousness: awake HEENT normocephalic, head/scalp atraumatic, hearing grossly normal bilaterally, moist oral mucous membranes and oropharynx normal Eyes PERRL, EOMs intact bilaterally and conjunctivae normal Neck no lymphadenopathy, supple and no JVD Lymph Lymphatic: no lymphadenopathy noted and no lymphedema noted Resp normal respiratory effort, normal air movement, no retractions, no use of accessory muscles and clear to auscultation bilaterally Resp Narrative: mildly diminished breath sounds bibasally, no wheezes or crackles. On room air. Cardio regular rate, regular rhythm, S1 normal heart sound, S2 normal heart sound and no murmurs GI normal to inspection, nondistended, normoactive bowel sounds, soft to palpation, non-tender and non- distended Extremity normal to inspection, full ROM, normal capillary refill, no clubbing, cyanosis or edema and no calf tenderness General Extremity: no tenderness to palpation of joints or extremities Skin no rashes or lesi (more content not included)... [facility] Clinical Note 04-29-2024 Note Date & Type Note Facility 04-29-2024 Note [facility] Medical Records Department [address] [place] [address] History Physical Exam 04/29/24 2352 MR#: [id number] Acct: [id number] Name: WILNER PAZ Rep #: [id number] : 1960 63 From: Tor Andrade MD PCP: Care Physician,No Primary Status:REG ER Location: ED HPI - General General Date of Admission: 04/29/24 Date of Service: 04/29/24 Chief Complaint: Chest pain HPI Narrative WILNER PAZ, is a 63 F who presents to the emergency room with chief complaint of chest pain. She was seen and examined earlier in the day and left AMA only to return later this evening. Patient states at 4:00 this morning she had substernal chest pain that did not radiate it was significant enough to make her feel short of breath. Patient has a significant past medical history of long-term smoking and does not routinely seek medical care. Patient states she was anxious and left the emergency room to help care for family member but then came back for further evaluation. Initial troponin x 2 are negative however due to risk factors and continued chest pain patient will be admitted for cardiac rule out. Patient denies any fevers chills and/or nausea or vomiting or diarrhea. [facility] Medical History History of shingles Home Medications ???Medication ???Instructions ???Recorded ???Last Taken ???Type NK 04/29/24 Unknown History Allergy/AdvReac Type Severity Reaction Status Date / Time No Known Allergies Allergy Verified 04/29/24 21:59 Social History Smoking Status: Current every day smoker tobacco type: cigarettes ROS Constitutional Constitutional: Denies chills or fever(s) Eyes Eyes: Denies blurry vision ENT HEENT: Denies abnormal hearing Cardiovascular Cardiovascular: Reports chest pain; Denies syncope Respiratory/Chest Respiratory/Chest: Denies cough Gastrointestinal Gastrointestinal: Denies abdominal pain Genitourinary Genitourinary: Denies dysuria Musculoskeletal Musculoskeletal: Denies back pain Integumentary Integumentary: Denies dry skin Neurologic Neurologic: Denies abnormal speech Psychiatric Psychiatric: Reports anxiety Vital Signs Vital Signs Vital Signs: 04/29/24 21:59 04/29/24 22:35 04/29/24 22:41 Temperature 97.5 F L Temperature Source Oral Pulse Rate 88 87 Respiratory Rate 18 18 Respiratory Pattern Blood Pressure 139/75 H Blood Pressure Mean 96 Pulse Ox 94 Oxygen Delivery Method Room Air Room Air 04/29/24 22:43 04/29/24 22:44 04/29/24 22:45 Temperature Temperature Source Pulse Rate 81 84 Respiratory Rate 20 H 21 H Respiratory Pattern Normal Normal Blood Pressure Blood Pressure Mean Pulse Ox Oxygen Delivery Method 04/29/24 22:51 04/29/24 22:52 03/03/25 23:00 Temperature Temperature Source Pulse Rate 81 80 88 Respiratory Rate 19 H 18 Respiratory Pattern Blood Pressure 107/80 107/80 117/64 Blood Pressure Mean 90 75 Pulse Ox 98 93 Oxygen Delivery Method Room Air Room Air 04/29/24 23:03 04/29/24 23:14 Temperature Temperature Source Pulse Rate 81 79 Respiratory Rate 18 Respiratory Pattern Blood Pressure 117/64 118/66 Blood Pressure Mean 81 Pulse Ox 94 Oxygen Delivery Method Room Air Weight Weight: 95 lb 14.4 oz Body Mass Index (BMI) 17.5 Physical Exam Const oriented x3 General Appearance: cooperative and well developed Eyes PERRL and EOMs intact bilaterally Neck no lymphadenopathy Lymph Lymphatic: no lymphadenopathy noted Resp normal respiratory effort, normal air movement and clear to auscultation bilaterally Cardio regular rate, regular rhythm, S1 normal heart sound, S2 normal heart sound and no murmurs GI normal to inspection, nondistended, normoactive bowel sounds Extremity normal capillary refill Skin General Skin Exam: no breakdown Neuro no focal motor deficits and no sensory deficits noted Psych thought process normal Mood Affect: anxious Results Lab / Micro Data Labs: Laboratory Results - last 24 hr 04/29/24 22:44: D-Dimer Quant (PE/DVT) 0.28, Magnesium 2.2, Troponin T High Sens 14, TSH 5.260 H Rhythm Strip Rhythm Strip: Sinus Rhythm Rate: 87 Ectopy: None Assessment Plan Assessment/Plan (1) Chest pain, unspecified: PLAN: Plan 1 chest pain rule out SD???admit patient to progressive care unit, repeat cardiac enzymes, order nuclear exercise stress test in the a.m. will add orders for as needed nitroglycerin for chest pain as well as oxygen as needed. I do not feel morphine is warranted at this time as her pain is 1 out of 10 on a scale 1-10. 2. Smoking cessatio (more content not included)... 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 Wear your wrist splint. Return if the pain worsens or not improve or repeat film in 7 to 10 days. * Attachments The following attachments cannot be sent through Care Everywhere. * Wrist Sprain (Chinese) documented in this encounter Assessments Diagnosis Sprain of right wrist, initial encounter- Primary Chief Complaint and Reason for Visit Chief Complaint RIGHT ARM PAIN Reason for Referral * chest pain Additional Source Comments INFORMATION SOURCE (unrecogn ized section and content) DATE CREATED AUTHOR 05/30/2018 [facility] DATE CREATED AUTHOR AUTHOR'S ORGANIZ ATION 06/12/2018 [facility] DATE CREATED AUTHOR AUTHOR'S ORGANIZ ATION 12/17/2018 [facility] DATE CREATED AUTHOR AUTHOR'S ORGANIZ ATION 08/12/2022 [facility] DATE CREATED AUTHOR AUTHOR'S ORGANIZ ATION 05/24/2023 [facility] DATE CREATED AUTHOR AUTHOR'S ORGANIZ ATION 03/24/2024 [facility] DATE CREATED AUTHOR AUTHOR'S ORGANIZ ATION 12/20/2024 [facility] Reason for Visit (unrecogniz ed section and content) Reason Comments Wrist Pain Dina Doyle RN - 12/15/2018 4:38 PM Dina Johnson RN - 12/15/2018 4:37 PM Dina Johnson RN - 12/15/2018 4:04 PM Dina Johnson RN - 12/15/2018 3:57 PM EDT ED Notes (unrecognized secti on and content) PT ambulates per self to lobby. Pt alert, oriented and stable at dc. Cock-up splint applied to R arm per orders, pt educated on use and application of splint and verbalizes understanding. Pt provided with ice pack for wrist, states that she needs heat and currently running hand under warm water. Pt states that water is not hot enough and needs more heat. Pt tearful and unable to sit still in room. Pt states was shopping and picked up something with her R hand and heard a pop and now has pain to R wrist approx 30 min ago. documented in this encounter Goals (unrecognized section and content) Goals may be documented in a n alternate section <item> Privacy Markings (unrecogniz ed section and content) Section Author: Nancy Vinson PROHIBITION ON REDISCLOSURE OF CONFIDENTIAL INFORMATION This notice accompanies a disclosure of information concerning a client made to you with the consent of such client. FOR RECORDS PERTAINING TO PATIENTS WHO ARE OR HAVE BEEN ENROLLED IN A CHEMICAL DEPENDENCY/SUBSTANCEABUSE PROGRAM, SOME INFORMATION MAY BE OMITTED. This clinical summary was aggregated from multiple sources. Caution should be exercised in using it in the provision of clinical care. This summary normalizes information from multiple sources, and as a consequence, information in this document may materially change the coding, format and clinical context of patient data. In addition, data may be omitted in some cases. CLINICAL DECISIONS SHOULD BE BASED ON THE PRIMARY CLINICAL RECORDS. [employer] provides no warranty or guarantee of the accuracy or completeness of information in this document.
[2025-01-25] MEDS: 0.9% Normal Saline (500mL Bag) 500 ML 999 ML IV (18:48)
--- NOTE | 2025-01-25 18:50 | RAD_ITS ---
PROCEDURE: CHEST PA AND LATERAL 01/25/2025 REASON FOR EXAM: DYSPNEA COPD TECHNIQUE: Procedure Code: RADCXR Modality: DX Procedure: CHEST PA AND LATERAL COMPARISON: Chest x-ray 04/29/2024. FINDINGS: Hardware: Monitor electrodes overlie the chest. Heart: No cardiomegaly. Mediastinum: Unremarkable. Lungs: Pulmonary emphysema. No pulmonary consolidation. No pleural effusion or pneumothorax. Bones: No acute bony abnormalities. RAD/Chest PA and Lateral IMPRESSION: No acute cardiopulmonary abnormalities. Reading Location: [id number]
[2025-01-25 18:59] LABS: Anion Gap 15 (5-15); BUN 15 mg/dL (4-19); BUN/Creat Ratio 21.6 RATIO (10-20); Calcium,Total 9.4 mg/dL (7.6-11.0); Carbon Dioxide 21.5 mmol/L (21.0-32.0); Chloride 101 mmol/L (98-108); Glucose 137 mg/dL (70-99); Potassium 3.9 mmol/L (3.3-5.1); Troponin T High Sensitivity 21 ng/L (<=14)
[2025-01-25 19:15] LABS: Reactive Lymphocyte RARE
[2025-01-25 19:16] LABS: Red Cell Morphology NORM C+C NORMAL (NORM C&C)
== END 2025-01-25 20:32 | disposition home or self-care (01) ==
PROVIDERS: Emergency Provider Emergency Medicine; Visit Provider Emergency Medicine
DX: J06.9 Acute upper respiratory infection, unspecified (principal); J44.1 Chronic obstructive pulmonary disease with (acute) exacerbation; R09.02 Hypoxemia; F17.210 Nicotine dependence, cigarettes, uncomplicated
CPT/HCPCS: 71046; 80048; 84484; 85025; 87631; 93005; 94640; 96361; 96374; 99283; A4216